=== PATIENT | female | born 1990 | race Caucasian/White ===

== ENCOUNTER 2017-02-11 21:03 | Observation (INO) | payer OTHER ==
[2017-02-11 22:04] LABS: Bilirubin NEGATIVE (NEGATIVE); Blood NEGATIVE Ery/ul (0-5); COMPLETE URINE MICROSCOPIC? YES; Collection Type CLEAN CATCH; Glucose NEGATIVE (NEGATIVE); Leukocyte Esterase TRACE (NEGATIVE)
[2017-02-11 22:05] LABS: Bacteria MANY /HPF (NEGATIVE); Epithelial Cells MODERATE /HPF (FEW); Mucus SLIGHT /HPF (NEGATIVE)
[2017-02-12 03:28] VITALS: BP 112/66; PULSE 86
== END 2017-02-12 02:40 | disposition home or self-care (01) ==
LOC: OB 21:03 → UNDOADMOB 21:03 → UNDODISOB 02-12 02:40
PROVIDERS: ADMIT Family Medicine; ATTEND Family Medicine
DX: Z34.83 Encounter for supervision of other normal pregnancy, third trimester (principal)
CPT/HCPCS: 80307; 81000; G0378

== ENCOUNTER 2017-02-13 05:00 | Observation (INO) | payer OTHER ==
[2017-02-13 08:19] VITALS: BP 116/57; PULSE 92
== END 2017-02-13 08:20 | disposition home or self-care (01) ==
LOC: OB 05:00
PROVIDERS: ADMIT Family Medicine; ATTEND Family Medicine
DX: Z34.83 Encounter for supervision of other normal pregnancy, third trimester (principal)
CPT/HCPCS: 80307; G0378

== ENCOUNTER 2017-02-15 06:09 | Inpatient (IN) | payer OTHER ==
[2017-02-15] MEDS ORDERED: OMNIPEN 2 GM / NACL 100ML 100 ML ONE (07:29)
[2017-02-15] MEDS ORDERED: Lactated Ringers 1,000 ML IV ONE ×2 (07:29→07:58)
[2017-02-15] MEDS ORDERED: PITOCIN 30 UNITS/ LR 500 ML 500 ML IV ONE (07:30)
[2017-02-15] MEDS ORDERED: OMNIPEN 2 GM / NACL 100ML 100 ML IV ONE (07:31)
[2017-02-15] MEDS ORDERED: XYLOCAINE 1% HCL 20 ML MDV IJ PRN (07:31)
[2017-02-15 07:54] LABS: BASOPHIL % 0.2 % (0.0-0.4); Eosinophil % 0.6 % (0.00-5.0); Granulocytes % 79.1 % (36.0-66.0); Lymphocytes % 12.9 % (24.0-44.0); Mean Cell Volume 75.3 fl (78-100); Mean Platelet Volume 9.5 fl (6-9.5); Monocytes % 7.2 % (0.0-12.0); Platelet Count 260 K/mm3 (150-450); Red Blood Count 3.73 M/mm3 (4.1-5.4); Red Cell Distribution Width 17.4 % (11.5-14.0); White Blood Count 11.7 K/mm3 (4.0-10.5)
[2017-02-15 07:55] LABS: Mean Corpuscular Hemoglobin 21.9 pg (26-32)
[2017-02-15] MEDS ORDERED: Ephedrine Sulfate 50 MG/ML IV PRN (07:58)
[2017-02-15] MEDS ORDERED: OB EPIDURAL NAROPIN/SUFENTANIL IN NACL EPIDURAL PRN (07:58)
[2017-02-15] MEDS ORDERED: Lactated Ringers 1,000 ML IV SCH (08:00)
[2017-02-15] MEDS ORDERED: PITOCIN 30 UNITS/ LR 500 ML 500 ML IV SCH (08:00)
[2017-02-15] MEDS ORDERED: Dermoplast Spray TP PRN (09:15)
[2017-02-15] MEDS ORDERED: CORTISONE 1% CREAM TP PRN (09:15)
[2017-02-15] MEDS ORDERED: TYLENOL EXTRA STRENGTH 500 MG PO PRN (09:15)
[2017-02-15] MEDS ORDERED: Dulcolax 10 MG SUPP PR PRN (09:15)
[2017-02-15] MEDS ORDERED: LANSINOH 40 GM TOP PRN (09:15)
[2017-02-15] MEDS ORDERED: TUCKS TP PRN (09:15)
[2017-02-15] MEDS ORDERED: Mylicon 80MG PO PRN (09:15)
[2017-02-15] MEDS ORDERED: Anucort-HC SUPPOSITORY PR PRN (09:15)
[2017-02-15] MEDS ORDERED: Ambien 10 MG PO PRN (09:15)
[2017-02-15] MEDS: MOTRIN 400 MG PO PRN (09:55)
[2017-02-15] MEDS ORDERED: OMNIPEN 1GM / NaCl 100ML 100 ML IV SCH (12:00)
[2017-02-15 13:41] LABS: Collection Type VOID
[2017-02-15 13:42] LABS: Bacteria MANY /HPF (NEGATIVE); Bilirubin NEGATIVE (NEGATIVE); Blood MODERATE Ery/ul (0-5); COMPLETE URINE MICROSCOPIC? YES; Epithelial Cells FEW /HPF (FEW); Glucose NEGATIVE (NEGATIVE); Leukocyte Esterase TRACE (NEGATIVE)
[2017-02-15] MEDS ORDERED: Rhogam Plus 300 MCG IM ONE (14:00)
[2017-02-15 21:07] LABS: Mean Cell Volume 76.5 fl (78-100); Mean Platelet Volume 9.2 fl (6-9.5); Platelet Count 280 K/mm3 (150-450); White Blood Count 13.3 K/mm3 (4.0-10.5)
[2017-02-15] MEDS: Colace 100 MG PO SCH (23:38)
[2017-02-15 23:40] LABS: Hypochromia 1+; Platelet Estimate NORMAL (NORMAL); Total Cells Counted 100
[2017-02-16 06:35] LABS: Mean Cell Volume 76.7 fl (78-100); Mean Corpuscular Hemoglobin 21.9 pg (26-32); Mean Platelet Volume 9.7 fl (6-9.5); Platelet Count 281 K/mm3 (150-450); Red Blood Count 3.74 M/mm3 (4.1-5.4); Red Cell Distribution Width 17.4 % (11.5-14.0); White Blood Count 12.6 K/mm3 (4.0-10.5)
[2017-02-16 07:48] LABS: ANISOCYTOSIS 1+; Hypochromia 1+; Platelet Estimate NORMAL (NORMAL); Total Cells Counted 100
[2017-02-16] MEDS: FERREX 150 PO SCH (13:02)
[2017-02-16] MEDS: Colace 100 MG PO SCH (13:03)
[2017-02-16] MEDS: MOTRIN 400 MG PO PRN ×2 (15:36→22:52)
[2017-02-16 19:46] VITALS: O2SAT 98
[2017-02-17] MEDS: Colace 100 MG PO SCH ×3 (00:41→21:38)
[2017-02-17] MEDS: NORCO 5/325 MG PO PRN ×3 (00:41→23:08)
[2017-02-17] MEDS: MOTRIN 400 MG PO PRN (08:38)
[2017-02-17] MEDS: FERREX 150 PO SCH (08:39)
[2017-02-17] MEDS: KEFLEX 500 MG PO SCH ×4 (10:12→21:38)
[2017-02-18] MEDS: MOTRIN 400 MG PO PRN (06:20)
--- NOTE | 2017-02-18 08:32 | PCM.DS ---
Discharge Summary Date of Admission: 02/15/17 07:25 Admitting Physician: RUTHIE SHARIF Consults: Consults on Case 02/15/17 09:16 Notify Physician ROUTINE Primary Care Provider: RUTHIE SHARIF Allergies Allergies No Known Drug Allergies Allergy (Verified 02/13/17 05:16) Hospital Summary - Hospital Course Hospital Course: patient came in with spont labor and SROM at 37+wks, vaginal delivery by Dr Sullivan. no complications, has dental infection and started on keflex post- delivery. mild lochia, ama po, afebrile - Vitals & Intake/Output Vital Signs: Vital Signs Temperature 98.9 F 02/17/17 19:42 Pulse Rate 93 H 02/17/17 19:42 Respiratory Rate 18 02/18/17 02:00 Blood Pressure 121/63 02/17/17 19:42 O2 Sat by Pulse Oximetry 98 02/17/17 06:00 Intake & Output: Intake & Output 02/15/17 02/16/17 02/17/17 02/18/17 11:59 11:59 11:59 11:59 Intake Total 1300 Balance 1300 Weight 69.4 kg - Lab Result Diagrams: 02/16/17 06:15 Discharge Exam General Appearance: no apparent distress, alert Respiratory Exam: normal breath sounds, lungs clear, No respiratory distress Cardiovascular Exam: regular rate/rhythm, normal heart sounds Gastrointestinal/Abdomen Exam: soft, No tenderness, No mass Extremity Exam: normal inspection, normal range of motion Final Diagnosis/Problem List - Final Discharge Diagnosis/Problem (1) Vaginal delivery Current Visit: No Status: Acute (2) Dental infection Current Visit: Yes Status: Acute - Discharge Disposition: Home, Self-Care Condition: Stable Prescriptions: New Ibuprofen 800 mg PO TID PRN #30 tablet Cephalexin Mh 500 mg [Keflex 500 mg] 500 mg PO QID #28 capsule Breast Pump [Pump in Style Advanced] 1 each UD #1 each
[2017-02-18 08:35] VITALS: BP 108/79; PULSE 85
== END 2017-02-18 10:05 | disposition home or self-care (01) | DRG 775 ==
LOC: OB 06:09 → OBSVTOIN 07:25
PROVIDERS: ADMIT Family Medicine; ATTEND Family Medicine
PROC: 10E0XZZ Delivery of Products of Conception, External Approach (ICD-10-PCS; principal; 2017-02-15)
DX: O42.92 Full-term premature rupture of membranes, unspecified as to length of time between rupture and onset of labor (principal); Z3A.37 37 weeks gestation of pregnancy; I10 Essential (primary) hypertension; Z37.0 Single live birth; D64.9 Anemia, unspecified; K04.7 Periapical abscess without sinus
CPT/HCPCS: 36415; 80307; 81000; 85025; 85461; 86850; 86870; 86900; 86901; 96372; G0378; J0290; J2590; J2790; A9270-GY

== ENCOUNTER 2019-04-02 14:21 | Observation (INO) | payer SELFPAY ==
[2019-04-02 14:39] VITALS: BP 104/55; PULSE 98
[2019-04-02 15:34] LABS: Appearance SLIGHTLY CLOUDY (CLEAR); Bacteria MODERATE /HPF (NEGATIVE); Bilirubin NEGATIVE (NEGATIVE); Blood NEGATIVE Ery/ul (0-5); Epithelial Cells RARE /HPF (FEW); Glucose NEGATIVE (NEGATIVE); Ketones NEGATIVE (NEGATIVE); Leukocyte Esterase MODERATE (NEGATIVE); Mucus SLIGHT /HPF (NEGATIVE); Nitrite POSITIVE (NEGATIVE); Protein,Urine Dip NEGATIVE (Negative); Specific Gravity 1.008 (1.005-1.025); Urobilinogen NEGATIVE mg/dL (0-1); WBC 26-50 /HPF (0-5)
[2019-04-02 15:40] LABS: Amphetamine,Urine NEGATIVE (NEGATIVE); Barbiturate,Urine NEGATIVE (NEGATIVE); Benzodiazepine,Urine NEGATIVE (NEGATIVE); Cocaine,Urine NEGATIVE (NEGATIVE); Methadone,Urine NEGATIVE (NEGATIVE); Opiate,Urine NEGATIVE (NEGATIVE); PCP,Urine NEGATIVE (NEGATIVE); THC,Urine NEGATIVE (NEGATIVE)
[2019-04-02] MEDS ORDERED: Rocephin 1000 MG INJ IM ONE (16:00)
[2019-04-02] MEDS ORDERED: XYLOCAINE 1% HCL 20 ML MDV IJ ONE (16:15)
[2019-04-02 16:53] LABS: ABO TYPING B; Antibody Screen NEGATIVE (NEGATIVE); RH TYPING NEGATIVE
== END 2019-04-02 16:45 | disposition home or self-care (01) ==
LOC: OB 14:21
PROVIDERS: ADMIT Family Medicine; ATTEND Family Medicine
DX: Z34.83 Encounter for supervision of other normal pregnancy, third trimester (principal)
CPT/HCPCS: 36415; 80307; 81001; 86850; 86900; 86901; 96372; G0378; J0696

== ENCOUNTER 2019-04-03 12:18 | Observation (INO) | payer MEDICAID ==
[2019-04-03] MEDS ORDERED: Lactated Ringers 1,000 ML IV ONE (12:26)
[2019-04-03] MEDS ORDERED: Lactated Ringers 1,000 ML IV SCH (12:30)
[2019-04-03 13:20] LABS: ALBUMIN 3.7 g/dL (3.5-5.0); ALKALINE PHOSPHATASE 98 U/L (38-126); ANION GAP 11.7 MEQ/L (5-15); BLOOD UREA NITROGEN 8 mg/dL (7-17); CHLORIDE 108 mmol/L (98-107); Calcium 8.6 mg/dL (8.4-10.2); Carbon Dioxide 21 mmol/L (22-30); Creatinine 1 0.47 mg/dL (0.52-1.04); Glucose 81 mg/dL (74-106); Hemoglobin 7.4 gm/dl (12.0-16.0); Mean Cell Volume 76.5 fl (78-100); Mean Corpuscular Hemoglobin 22.6 pg (26-32); Mean Corpuscular Hgb Concent. 29.6 g/dl (32-36); Mean Platelet Volume 8.9 fl (6-9.5); Platelet Count 253 K/mm3 (150-450); Potassium 3.8 mmol/L (3.5-5.1); Red Blood Count 3.27 M/mm3 (4.1-5.4); Red Cell Distribution Width 14.9 % (11.5-14.0); SGOT/AST 22 U/L (14-36); SGPT/ALT 9 U/L (0-35); SODIUM 137 mmol/L (137-145); Total Protein 7.2 g/dL (6.3-8.2); White Blood Count 11.8 K/mm3 (4.0-10.5)
--- NOTE | 2019-04-03 13:36 | XRAY ---
Indication: Evaluate cervical length. Two-dimensional limited transvaginal pelvic sonogram performed to evaluate cervical length. Cervix is closed measuring 3.2-3.8 cm.
--- NOTE | 2019-04-03 13:36 | XRAY ---
Indication: Pain. Rule out abruption. Comparison: January 27, 2019. Limited OB ultrasound again demonstrates a single viable intrauterine in cephalic presentation with heart rate 123 BPM. Again anterior placenta without abruption/previa.
[2019-04-03 13:58] LABS: BAND 12 % (0.0-2.0); Eosinophil 2 % (0.00-3.0); Lymphocytes 12 % (24-44); Monocyte 5 % (0.0-12.0); Neutrophils 69 % (36.0-66.0); Total Cells Counted 100
[2019-04-03 14:01] LABS: Hypochromia 1+; Platelet Estimate NORMAL (NORMAL); Poikilocytosis RARE; Polychromasia 1+
[2019-04-03 14:02] LABS: Granulocyte Absolute (ANC) 9.57 (1.4-6.9)
[2019-04-03] MEDS ORDERED: FEOSOL 325 MG PO SCH (14:45)
[2019-04-03] MEDS ORDERED: ROCEPHIN 1 Gm-D5w 50 ml Bag** 1 G/50 ML IVPB IV ONE (14:45)
[2019-04-03 16:53] LABS: Appearance SLIGHTLY CLOUDY (CLEAR); Bilirubin NEGATIVE (NEGATIVE); Blood SMALL Ery/ul (0-5); Epithelial Cells FEW /HPF (FEW); Glucose NEGATIVE (NEGATIVE); Ketones TRACE (NEGATIVE); Leukocyte Esterase SMALL (NEGATIVE); Nitrite NEGATIVE (NEGATIVE); Protein,Urine Dip NEGATIVE (Negative); RBC 0-2 /HPF (0-2); Specific Gravity 1.005 (1.005-1.025); Urobilinogen NEGATIVE mg/dL (0-1); WBC 0-2 /HPF (0-5)
[2019-04-03 16:59] VITALS: BP 100/53; PULSE 76
[2019-04-04] MEDS ORDERED: FEOSOL 325 MG PO SCH (10:00)
[2019-04-04] MEDS ORDERED: ROCEPHIN 1 Gm-D5w 50 ml Bag** 1 G/50 ML IVPB IV ONE (14:45)
== END 2019-04-03 18:05 | disposition home or self-care (01) ==
LOC: OB 12:18
PROVIDERS: ADMIT Family Medicine; ATTEND Family Medicine
DX: Z34.83 Encounter for supervision of other normal pregnancy, third trimester (principal)
CPT/HCPCS: 36415; 76815; 76817; 80053; 81001; 84439; 84481; 85025; G0378; J0696; A9270-GY

== ENCOUNTER 2019-05-26 12:27 | Observation (INO) | payer OTHER ==
[2019-05-26 13:06] LABS: Appearance SLIGHTLY CLOUDY (CLEAR); Bacteria RARE /HPF (NEGATIVE); Bilirubin NEGATIVE (NEGATIVE); Blood NEGATIVE Ery/ul (0-5); Epithelial Cells RARE /HPF (FEW); Glucose NEGATIVE (NEGATIVE); Ketones NEGATIVE (NEGATIVE); Leukocyte Esterase TRACE (NEGATIVE); Mucus SLIGHT /HPF (NEGATIVE); Nitrite NEGATIVE (NEGATIVE); Protein,Urine Dip NEGATIVE (Negative); Specific Gravity 1.019 (1.005-1.025); Urobilinogen 4 mg/dL (0-1)
[2019-05-26 13:16] VITALS: BP 102/57; PULSE 100
== END 2019-05-26 15:00 | disposition home or self-care (01) ==
LOC: OB 12:27
PROVIDERS: ADMIT Family Medicine; ATTEND Family Medicine
DX: Z34.83 Encounter for supervision of other normal pregnancy, third trimester (principal)
CPT/HCPCS: 81001

== ENCOUNTER 2019-06-02 23:20 | Observation (INO) | payer OTHER ==
[2019-06-03 00:07] VITALS: BP 119/58; PULSE 100; O2SAT 100
[2019-06-03 00:47] LABS: Amphetamine,Urine NEGATIVE (NEGATIVE); Barbiturate,Urine NEGATIVE (NEGATIVE); Benzodiazepine,Urine NEGATIVE (NEGATIVE); Cocaine,Urine NEGATIVE (NEGATIVE); Methadone,Urine NEGATIVE (NEGATIVE); Opiate,Urine NEGATIVE (NEGATIVE); PCP,Urine NEGATIVE (NEGATIVE); THC,Urine NEGATIVE (NEGATIVE)
== END 2019-06-03 01:10 | disposition home or self-care (01) ==
LOC: OB 23:20
PROVIDERS: ADMIT Family Medicine; ATTEND Family Medicine
DX: Z34.83 Encounter for supervision of other normal pregnancy, third trimester (principal)
CPT/HCPCS: 80307; G0378

== ENCOUNTER 2019-06-12 19:53 | Inpatient (IN) | payer OTHER ==
[2019-06-12 20:44] VITALS: O2SAT 97
[2019-06-12 20:45] LABS: Amphetamine,Urine NEGATIVE (NEGATIVE); Barbiturate,Urine NEGATIVE (NEGATIVE); Benzodiazepine,Urine NEGATIVE (NEGATIVE); Cocaine,Urine NEGATIVE (NEGATIVE); Methadone,Urine NEGATIVE (NEGATIVE); Opiate,Urine NEGATIVE (NEGATIVE); PCP,Urine NEGATIVE (NEGATIVE); THC,Urine NEGATIVE (NEGATIVE)
[2019-06-12] MEDS ORDERED: Lactated Ringers 1,000 ML IV ONE (21:26)
[2019-06-12] MEDS ORDERED: XYLOCAINE 1% HCL 20 ML MDV IJ PRN (21:30)
[2019-06-12] MEDS ORDERED: PITOCIN 30 UNITS/ LR 500 ML 500 ML IV SCH (21:30)
[2019-06-12 21:44] LABS: Hematocrit 32.7 % (35-47); Hemoglobin 10.5 gm/dl (12.0-16.0); Mean Cell Volume 86.5 fl (78-100); Mean Corpuscular Hgb Concent. 32.1 g/dl (32-36); Mean Platelet Volume 9.1 fl (6-9.5); Platelet Count 229 K/mm3 (150-450); Red Blood Count 3.78 M/mm3 (4.1-5.4); White Blood Count 15.8 K/mm3 (4.0-10.5)
[2019-06-12 21:48] LABS: Mean Corpuscular Hemoglobin 27.7 pg (26-32)
[2019-06-12] MEDS ORDERED: Lactated Ringers 1,000 ML IV SCH (22:00)
[2019-06-12 23:54] LABS: ABO TYPING B; RH TYPING NEGATIVE
[2019-06-12 23:55] LABS: Antibody Screen POSITIVE (NEGATIVE)
[2019-06-13] MEDS ORDERED: LANSINOH 40 GM TOP PRN (00:45)
[2019-06-13] MEDS ORDERED: Mylicon 80MG PO PRN (00:45)
[2019-06-13] MEDS ORDERED: Rhogam Plus 300 MCG IM ONE ×2 (00:45→10:00)
[2019-06-13] MEDS ORDERED: Dulcolax 10 MG SUPP PR PRN (00:45)
[2019-06-13] MEDS ORDERED: CORTISONE 1% CREAM TP PRN (00:45)
[2019-06-13] MEDS ORDERED: Anucort-HC SUPPOSITORY PR PRN (00:45)
[2019-06-13] MEDS ORDERED: Ambien 10 MG PO PRN (00:45)
[2019-06-13] MEDS ORDERED: TYLENOL EXTRA STRENGTH 500 MG PO PRN (00:45)
[2019-06-13] MEDS ORDERED: Dermoplast Spray TP PRN (00:45)
[2019-06-13] MEDS ORDERED: TUCKS TP PRN (00:45)
[2019-06-13] MEDS ORDERED: NORCO 5/325 MG PO PRN (00:45)
[2019-06-13 01:17] LABS: ABO TYPING B; RH TYPING NEGATIVE
[2019-06-13 01:18] LABS: ANTIBODY SCREEN POSITIVE (NEGATIVE)
[2019-06-13] MEDS: MOTRIN 400 MG PO PRN ×3 (04:28→21:56)
[2019-06-13 05:19] LABS: Hematocrit 31.6 % (35-47); Hemoglobin 10.1 gm/dl (12.0-16.0); Mean Cell Volume 87.5 fl (78-100); Mean Platelet Volume 9.3 fl (6-9.5); Platelet Count 252 K/mm3 (150-450); Red Blood Count 3.61 M/mm3 (4.1-5.4); White Blood Count 16.8 K/mm3 (4.0-10.5)
[2019-06-13 05:21] LABS: Mean Corpuscular Hemoglobin 27.9 pg (26-32)
[2019-06-13 05:31] LABS: ANISOCYTOSIS 1+; BAND 4 % (0.0-2.0); Lymphocytes 11 % (24-44); Monocyte 3 % (0.0-12.0); Neutrophils 82 % (36.0-66.0); Platelet Estimate NORMAL (NORMAL); Poikilocytosis 2+; Total Cells Counted 100; Toxic Granulation RARE
[2019-06-13 05:52] LABS: ANISOCYTOSIS RARE; Basophil 1 % (0.0-1.0); Eosinophil 1 % (0.00-3.0); Lymphocytes 7 % (24-44); Monocyte 8 % (0.0-12.0); Neutrophils 83 % (36.0-66.0); Platelet Estimate NORMAL (NORMAL); Poikilocytosis RARE; Polychromasia RARE; Total Cells Counted 100; Toxic Granulation 1+
[2019-06-13] MEDS: FERREX 150 PO SCH (10:39)
[2019-06-13] MEDS: Colace 100 MG PO SCH ×2 (10:39→21:57)
[2019-06-14 03:37] VITALS: PULSE 69
[2019-06-14] MEDS: MOTRIN 400 MG PO PRN (04:06)
[2019-06-14 06:01] VITALS: BP 100/53
--- NOTE | 2019-06-14 08:26 | PCM.DS ---
Discharge Summary Date of Admission: 06/12/19 19:53 Admitting Physician: RUTHIE SHARIF Primary Care Provider: RUTHIE SHARIF Allergies Allergies No Known Drug Allergies Allergy (Verified 06/12/19 20:50) Hospital Summary - Hospital Course Hospital Course: arrived in spontaneous labor at 38 5/7wks, had uncomplicated , . , mild lochia, pain has been well controlled. - Vitals & Intake/Output Vital Signs: Vital Signs Temperature 98.1 F 06/14/19 03:00 Pulse Rate 69 06/14/19 03:00 Respiratory Rate 18 06/13/19 15:45 Blood Pressure 100/53 06/14/19 04:00 O2 Sat by Pulse Oximetry 97 06/12/19 20:28 Intake & Output: Intake & Output 06/11/19 06/12/19 06/13/19 06/14/19 11:59 11:59 11:59 11:59 Weight 68.946 kg - Lab Result Diagrams: 06/13/19 05:17 - Procedures and Test Procedures and Tests throughout Hospitalization: Therapy Orders & Screens 06/12/19 20:44 Smoking Cessation Education ONCE Comment: Diagnosis: possible labor Smoking Status: Current every day smoker How long have you smoked: 3 yrd Have you smoked in the past 12 months: Yes Approximately how many cigarettes per day: about 10/day Do you dip or chew tobacco: No Discharge Exam General Appearance: no apparent distress, alert Respiratory Exam: normal breath sounds, lungs clear, No respiratory distress Cardiovascular Exam: regular rate/rhythm, normal heart sounds Gastrointestinal/Abdomen Exam: soft, No tenderness, No mass Extremity Exam: normal inspection, normal range of motion Skin Exam: normal color, warm, dry Final Diagnosis/Problem List - Final Discharge Diagnosis/Problem (1) Normal vaginal delivery Current Visit: Yes Status: Acute Code(s): O80 - ENCOUNTER FOR FULL-TERM UNCOMPLICATED DELIVERY (2) () Current Visit: Yes Status: Acute Code(s): Z78.9 - OTHER SPECIFIED HEALTH STATUS - Discharge Disposition: Home, Self-Care Condition: Stable Prescriptions: New Breast Pump 1 each MC DAILY #1 each Continue Pnv No.103/Folic/Om3s/Fish Oil [ Gummies] 1 each PO DAILY Follow up with: RUTHIE SHARIF MD [Primary Care Provider] - 1 Week
[2019-06-14] MEDS: Colace 100 MG PO SCH (10:16)
[2019-06-14] MEDS: FERREX 150 PO SCH (10:16)
== END 2019-06-14 14:30 | disposition home or self-care (01) | DRG 998 ==
LOC: OBSVTOIN 19:53 → OB 19:53
PROVIDERS: ADMIT Family Medicine; ATTEND Family Medicine
DX: O80 Encounter for full-term uncomplicated delivery (principal); Z3A.38 38 weeks gestation of pregnancy; Z37.0 Single live birth; Z78.9 Other specified health status
CPT/HCPCS: 36415; 80307; 81003; 85025; 85461; 86850; 86900; 86901; 87340; 96372; J2590; J2790; L0625; A9270-GY

== ENCOUNTER 2019-07-28 06:31 | Day surgery (SDC) | payer OTHER ==
[~2019-07-28 06:31] MED LIST: Lactated Ringers 1,000 ML IV ONE; Sensorcaine 0.25% 10 ML ONE
[2019-07-28] MEDS ORDERED: Lactated Ringers 1,000 ML IV ONE (07:20)
[2019-07-28] MEDS ORDERED: Lactated Ringers 1,000 ML IV SCH (07:30)
[2019-07-28] MEDS ORDERED: Zemuron 100 MG/10 ML ONE (07:58)
[2019-07-28] MEDS ORDERED: SUBLIMAZE 100 MCG/2 ML ONE ×2 (07:58→09:58)
[2019-07-28] MEDS ORDERED: DIPRIVAN 200 MG/20 ML IV ONE (07:58)
[2019-07-28] MEDS ORDERED: Quelicin Fliptop 200 MG/10 ML ONE (07:58)
[2019-07-28] MEDS ORDERED: TORAdol 30 mg Injection ONE (09:15)
[2019-07-28] MEDS ORDERED: Zofran 4 MG/2 ML VIAL ONE (09:15)
[2019-07-28] MEDS ORDERED: Decadron 4 MG INJ ONE (09:15)
[2019-07-28] MEDS ORDERED: BRIDION 200MG/2ML IV ONE (09:45)
[2019-07-28] MEDS ORDERED: DILAUDID 2 MG INJECTION ONE (09:58)
[2019-07-28 10:39] VITALS: O2SAT 100
[2019-07-28 11:09] VITALS: BP 144/89; PULSE 49
--- NOTE | 2019-07-29 08:30 | OP ---
SURGERY DATE/TIME: 07/28/2019 09 PREOPERATIVE DIAGNOSIS: Multiparity desiring tubal sterilization. POSTOPERATIVE DIAGNOSIS: Multiparity desiring tubal sterilization. PROCEDURE: Laparoscopic tubal sterilization via Falope ring application. SURGEON: Jeevan Luna D.O. COMPUTER SUPPORT TECHNICIAN: Niels King surgical aides teacher. ANESTHESIA: General. ESTIMATED BLOOD LOSS: Minimal. COMPLICATIONS: None. INDICATIONS: The risks, benefits, indications and alternatives of the procedure were reviewed with the patient prior to procedure. The patient understood the risk of infection, bleeding, bowel injury, bladder injury, ureteral injury, uterine perforation, possible and ectopic or all other forms of control were discussed with the patient prior to the procedure and understands the possible risk of of 1:4 out of 1,000 who may still get however desires to have this procedure for definitive treatment for control measure. DESCRIPTION OF PROCEDURE AND FINDINGS: At this point the patient is taken to the operating room, given general sedation, placed in a dorsal lithotomy position. Prepped and draped in usual sterile fashion. A weighted speculum is then placed in the patient's vagina and the anterior lip of the cervix was grasped with a single tooth tenaculum. From this point a uterine manipulator was then placed through the endocervical canal as a means to manipulate the uterus. All instruments were then removed from the patient's vagina region and attention is then turned to the patient's abdomen where a 5 mm skin incision was made in umbilical fold and a 5 mm trocar and sleeve were advanced under direct visualization where pneumoperitoneum was obtained with 4 liters of CO2 gas. From this point visualization in the abdominal cavity appeared to be within normal limits. An additional incision was made approximately 2 cm above the symphysis pubis where an 8 mm incision was made and 8 mm trocar and sleeve were advanced under direct visualization. From this point the uterus is elevated with uterine manipulator and the Falope ring applicator was loaded and the right isthmic-ampullary portion approximately 2 to 3 cm from the cornual region was grasped with a Falope ring and was applied without complication. The ring was noted to be in place and perfect position where a good amount of tube was located within the ring. The Falope ring applicator was reloaded and the same procedure was performed on the right fallopian tube approximately 2 to 3 cm from the cornual region where the tube was grasped with the Falope ring and the Falope ring was placed without complication in perfect position and had been released from the Falope ring applicator with a good amount of tube approximately 2 to 3 cm of tube that was within the ring and was done so without complication. There was no bleeding that was noted from either side at this point. From this point the pelvic region appeared to be within normal limits. From this point all instruments were then removed from the patient's abdominal region and the incisions were closed with 4-0 Monocryl suture. The patient was then taken out of anesthesia and was then taken to the recovery room in stable condition. All instruments and laps were accounted for x2.
== END 2019-07-28 11:05 | disposition home or self-care (01) ==
LOC: SDC 06:31
PROVIDERS: ATTEND Obstetrics & Gynecology
DX: Z30.2 Encounter for sterilization (principal)
CPT/HCPCS: 84703; J0330; J1100; J1170; J1885; J2405; J2704; J3010

== ENCOUNTER 2019-07-29 17:30 | Emergency (ER) | payer OTHER ==
[2019-07-29] MEDS ORDERED: Sodium Chloride 0.9% 1000 ML 1,000 ML IV STA (18:07)
[2019-07-29] MEDS ORDERED: Zofran 4 MG/2 ML VIAL IV ONE (18:07)
[2019-07-29] MEDS ORDERED: MORPHINE SULFATE 4 MG INJ IV ONE (18:07)
[2019-07-29 18:19] LABS: Absolute Neutrophil Ct (ANC) 4.27 (1.4-6.9); BASOPHIL % 0.4 % (0.0-0.4); Basophil (Absolute #) 0.02 (0-0.4); Eosinophil % 0.2 % (0.00-5.0); Eosinophil (Absolute #) 0.01 (0-0.5); Hematocrit 44.1 % (35-47); Hemoglobin 13.9 gm/dl (12.0-16.0); Lymphocyte (Absolute #) 0.43 (1.0-4.6); Lymphocytes % 8.6 % (24.0-44.0); Mean Cell Volume 92.6 fl (78-100); Mean Corpuscular Hemoglobin 29.2 pg (26-32); Mean Corpuscular Hgb Concent. 31.5 g/dl (32-36); Mean Platelet Volume 9.5 fl (7.5-11.0); Monocyte (Absolute #) 0.25 (0.0-1.3); Neutrophil % 85.8 % (36.0-66.0); Platelet Count 142 K/mm3 (150-450); Red Blood Count 4.76 M/mm3 (4.1-5.4); Red Cell Distribution Width 14.7 % (11.5-14.0)
[2019-07-29 18:27] LABS: Appearance SLIGHTLY CLOUDY (CLEAR); Bilirubin NEGATIVE (NEGATIVE); Blood LARGE Ery/ul (0-5); Epithelial Cells RARE /HPF (FEW); Glucose NEGATIVE (NEGATIVE); Ketones NEGATIVE (NEGATIVE); Leukocyte Esterase NEGATIVE (NEGATIVE); Mucus MODERATE /HPF (NEGATIVE); Nitrite NEGATIVE (NEGATIVE); Protein,Urine Dip NEGATIVE (Negative); Specific Gravity 1.026 (1.005-1.025); Urobilinogen 2 mg/dL (0-1)
[2019-07-29] MEDS ORDERED: Sodium Chloride 0.9% 1000 ML 1,000 ML ONE (18:28)
[2019-07-29] MEDS ORDERED: Zofran 4 MG/2 ML VIAL ONE (18:28)
[2019-07-29] MEDS ORDERED: MORPHINE SULFATE 4 MG INJ ONE (18:28)
[2019-07-29 18:30] LABS: ALBUMIN 4.2 g/dL (3.5-5.0); ANION GAP 9.3 MEQ/L (5-15); BILIRUBIN,TOTAL 0.5 mg/dL (0.2-1.3); Calcium 9.1 mg/dL (8.4-10.2); Creatinine 1 1.21 mg/dL (0.52-1.04); Potassium 3.4 mmol/L (3.5-5.1); Total Protein 7.7 g/dL (6.3-8.2)
--- NOTE | 2019-07-29 18:50 | ERPHSYRPT ---
- History of Present Illness Historian: patient, family Exam Limitations: no limitations Patient Subjective Stated Complaint: Fever Triage Nursing Assessment: Patient ambulated into ED and transferred self to bed. Patient A+O X3. Patient's skin flushed, hot and dry. Patient complains of lower abdominal pain constant sharp, stabbing pain 9/10 that has gotten worse today. Patient had tubal done yesterday per. Dr. Bermudez. Patient's abdomen round and tender with BS X 4. Patient states she is currently having vaginal bleeding. Patient delivered a baby one month ago. Patient complains of fever as high as 103.0. Patient called Dr. Bermudez's office and was instructed to come to ED for evaluation. Timing/Duration: yesterday Quality: sharpness Abdominal Pain Onset Location: periumbilical, suprapubic Pain Radiation: no radiation Severity of Pain-Max: moderate Severity of Pain-Current: severe Modifying Factors: Improves With: coughing, movement Associated Symptoms: fever/chills Previous symptoms: no prior history Hx Tetanus, Diphtheria Vaccination/Date Given: Yes Hx Influenza Vaccination/Date Given: No Hx Pneumococcal Vaccination/Date Given: No Immunizations Up to Date: Yes <MARLINE PABON - Last Filed: 07/29/19 18:45> <ROSARIO HOOD - Last Filed: 07/29/19 21:12> - History of Present Illness Time Seen by Provider: 07/29/19 18:00 Physician History: 28 YO with laparoscopic BTL yesterday presented with increasing pain lower abd since yesterday , moderate to severe intensity , shap nature associated with nausea and fever with TMAX 103F. also she is having mild dark colored vaginal bleeding. she has 1 month ago and not have cycle yet. (MARLINE PABON) Allergies/Adverse Reactions: No Known Drug Allergies Allergy (Verified 07/29/19 17:37) - Review of Systems Constitutional: Fever, Chills, Fatigue Eyes: No Symptoms Ears, Nose, & Throat: No Symptoms Respiratory: No Symptoms Cardiac: No Symptoms Abdominal/Gastrointestinal: Abdominal Pain, Nausea Genitourinary Symptoms: Vaginal Bleeding Musculoskeletal: No Symptoms Skin: No Symptoms Neurological: No Symptoms Psychological: No Symptoms Endocrine: No Symptoms Hematologic/Lymphatic: No Symptoms Immunological/Allergic: No Symptoms <MARLINE PABON - Last Filed: 07/29/19 18:45> - Past Medical History Pertinent Past Medical History: Yes Neurological History: No Pertinent History ENT History: No Pertinent History Cardiac History: No Pertinent History Respiratory History: No Pertinent History Endocrine Medical History: Hypothyroidism Musculoskeletal History: Arthritis GI Medical History: No Pertinent History History: No Pertinent History Psycho-Social History: No Pertinent History Female Reproductive Disorders: No Pertinent History Other Medical History: CLUB FOOT, HYPOTENSION, HYPOGLYCEMIA - Past Surgical History Past Surgical History: Yes Neuro Surgical History: No Pertinent History Cardiac: No Pertinent History Respiratory: No Pertinent History Gastrointestinal: No Pertinent History Genitourinary: No Pertinent History Musculoskeletal: Orthopedic Surgery Female Surgical History: Dilation & Curettage 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, d&c - Social History Smoking Status: Current every day smoker How long have you smoked: years Exposure to second hand smoke: Yes Drug Use: none Patient Lives Alone: No Significant Family History: no pertinent family hx - Female History Hx Now: No <MARLINE PABON - Last Filed: 07/29/19 18:45> - Physical Exam General Appearance: no apparent distress Eye Exam: PERRL/EOMI, eyes nml inspection Ears, Nose, Throat Exam: normal ENT inspection, TMs normal, pharyngeal erythema Neck Exam: normal inspection, non-tender, supple, full range of motion Respiratory Exam: normal breath sounds, lungs clear Cardiovascular Exam: regular rate/rhythm, normal heart sounds Gastrointestinal/Abdomen Exam: soft, normal bowel sounds, tenderness (lower abdomen. 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 Skin Exam: normal color, warm SpO2 Interpretation: normal SpO2: 100 O2 Delivery: Room Air <MARLINE PABON - Last Filed: 07/29/19 18:45> - Nursing Vital Signs Nursing Vital Signs: Initial Vital Signs Temperature 101.5 F 07/29/19 17:38 Pulse Rate 95 H 07/29/19 17:38 Respiratory Rate 18 07/29/19 17:38 Blood Pressure 101/54 07/29/19 17:38 O2 Sat by Pulse Oximetry 100 07/29/19 17:38 Pain Scale Pain Intensity 9 - Course Nursing assessment & vital signs reviewed: Yes <NIKKI PABONR - Last Filed: 07/29/19 18:45> Ordered Tests: Active Orders 24 hr Category Date Time Status IV Insertion STAT Care 07/29/19 18:07 Active ABDOMEN AND PELVIS W/0 CONTRAS [CT] Stat Exams 07/29/19 20:11 Taken CBC W DIFF Stat Lab 07/29/19 18:18 Completed CMP Stat Lab 07/29/19 18:18 Completed HCG,QUALITATIVE URINE Stat Lab 07/29/19 20:05 Completed LIPASE Stat Lab 07/29/19 18:18 Completed Lactic Acid Stat Lab 07/29/19 19:00 Completed UA W/RFX UR CULTURE Stat Lab 07/29/19 18:17 Completed Medication Summary Discontinued Medications Generic Name Dose Route Start Last Admin Trade Name Rom PRN Reason Stop Dose Admin Sodium Chloride 1,000 mls @ 999 mls/hr 07/29/19 18:07 07/29/19 20:07 Sodium Chloride 0.9% 1000 Ml IV 07/29/19 19:07 Infused .Q1H1M STA Infusion Sodium Chloride Confirm 07/29/19 18:28 Sodium Chloride 0.9% 1000 Ml Administered 07/29/19 18:29 Dose 1,000 mls @ ud .ROUTE .STK-MED ONE Morphine Sulfate 4 mg 07/29/19 18:07 07/29/19 18:31 Morphine Sulfate 4 Mg Inj IV 07/29/19 18:08 4 mg STAT ONE Administration Morphine Sulfate Confirm 07/29/19 18:28 Morphine Sulfate 4 Mg Inj Administered 07/29/19 18:29 Dose 4 mg .ROUTE .STK-MED ONE Ondansetron HCl 4 mg 07/29/19 18:07 07/29/19 18:30 Zofran 4 Mg/2 Ml Vial IV 07/29/19 18:08 4 mg STAT ONE Administration Ondansetron HCl Confirm 07/29/19 18:28 Zofran 4 Mg/2 Ml Vial Administered 07/29/19 18:29 Dose 4 mg .ROUTE .STK-MED ONE Lab/Rad Data: Laboratory Result Diagrams 07/29/19 18:18 07/29/19 18:18 Laboratory Results 07/29/19 07/29/19 07/29/19 Range/Units 20:05 19:00 18:18 WBC (4.0-10.5) K/mm3 RBC (4.1-5.4) M/mm3 Hgb (12.0-16.0) gm/dl Hct (35-47) % MCV (78-100) fl MCH (26-32) pg MCHC (32-36) g/dl RDW (11.5-14.0) % Plt Count (150-450) K/mm3 MPV (7.5-11.0) fl Gran % (36.0-66.0) % Eos # (Auto) (0-0.5) Absolute Lymphs (auto) (1.0-4.6) Absolute Monos (auto) (0.0-1.3) Lymphocytes % (24.0-44.0) % Monocytes % (0.0-12.0) % Eosinophils % (0.00-5.0) % Basophils % (0.0-0.4) % Absolute Granulocytes (1.4-6.9) Basophils # (0-0.4) Sodium 138 (137-145) mmol/L Potassium 3.4 L (3.5-5.1) mmol/L Chloride 102 (98-107) mmol/L Carbon Dioxide 29 (22-30) mmol/L Anion Gap 9.3 (5-15) MEQ/L BUN 14 (7-17) mg/dL Creatinine 1.21 H (0.52-1.04) mg/dL Estimated GFR 56.3 ML/MIN Glucose 98 (74-106) mg/dL Lactic Acid 1.2 (0.4-2.0) Calcium 9.1 (8.4-10.2) mg/dL Total Bilirubin 0.50 (0.2-1.3) mg/dL AST 37 H (14-36) U/L ALT 19 (0-35) U/L Alkaline Phosphatase 70 (38-126) U/L Serum Total Protein 7.7 (6.3-8.2) g/dL Albumin 4.2 (3.5-5.0) g/dL Lipase 60 (23-300) U/L Urine Color (YELLOW) Urine Appearance (CLEAR) Urine pH (5-6) Ur Specific [place] (1.005-1.025) Urine Protein (Negative) Urine Ketones (NEGATIVE) Urine Blood (0-5) Fernando/ul Urine Nitrite (NEGATIVE) Urine Bilirubin (NEGATIVE) Urine Urobilinogen (0-1) mg/dL Ur Leukocyte Esterase (NEGATIVE) Urine WBC (Auto) (0-5) /HPF Urine RBC (Auto) (0-2) /HPF U Epithel Cells (Auto) (FEW) /HPF Urine Bacteria (Auto) (NEGATIVE) /HPF Urine Mucus (Auto) (NEGATIVE) /HPF Urine Culture Reflexed (NO) Urine Glucose (NEGATIVE) mg/dL Urine HCG, Qual NEGATIVE (Negative) Slides for Path Review 07/29/19 07/29/19 Range/Units 18:18 18:17 WBC 5.0 (4.0-10.5) K/mm3 RBC 4.76 (4.1-5.4) M/mm3 Hgb 13.9 (12.0-16.0) gm/dl Hct 44.1 (35-47) % MCV 92.6 (78-100) fl MCH 29.2 (26-32) pg MCHC 31.5 L (32-36) g/dl RDW 14.7 H (11.5-14.0) % Plt Count 142 L (150-450) K/mm3 MPV 9.5 (7.5-11.0) fl Gran % 85.8 H (36.0-66.0) % Eos # (Auto) 0.01 (0-0.5) Absolute Lymphs (auto) 0.43 L (1.0-4.6) Absolute Monos (auto) 0.25 (0.0-1.3) Lymphocytes % 8.6 L (24.0-44.0) % Monocytes % 5.0 (0.0-12.0) % Eosinophils % 0.2 (0.00-5.0) % Basophils % 0.4 (0.0-0.4) % Absolute Granulocytes 4.27 (1.4-6.9) Basophils # 0.02 (0-0.4) Sodium (137-145) mmol/L Potassium (3.5-5.1) mmol/L Chloride (98-107) mmol/L Carbon Dioxide (22-30) mmol/L Anion Gap (5-15) MEQ/L BUN (7-17) mg/dL Creatinine (0.52-1.04) mg/dL Estimated GFR ML/MIN Glucose (74-106) mg/dL Lactic Acid (0.4-2.0) Calcium (8.4-10.2) mg/dL Total Bilirubin (0.2-1.3) mg/dL AST (14-36) U/L ALT (0-35) U/L Alkaline Phosphatase (38-126) U/L Serum Total Protein (6.3-8.2) g/dL Albumin (3.5-5.0) g/dL Lipase (23-300) U/L Urine Color YELLOW (YELLOW) Urine Appearance SLIGHTLY CLOUDY (CLEAR) Urine pH 5.0 (5-6) Ur Specific [place] 1.026 (1.005-1.025) Urine Protein NEGATIVE (Negative) Urine Ketones NEGATIVE (NEGATIVE) Urine Blood LARGE (0-5) Fernando/ul Urine Nitrite NEGATIVE (NEGATIVE) Urine Bilirubin NEGATIVE (NEGATIVE) Urine Urobilinogen 2 (0-1) mg/dL Ur Leukocyte Esterase NEGATIVE (NEGATIVE) Urine WBC (Auto) 3-5 (0-5) /HPF Urine RBC (Auto) 16-25 (0-2) /HPF U Epithel Cells (Auto) RARE (FEW) /HPF Urine Bacteria (Auto) NONE (NEGATIVE) /HPF Urine Mucus (Auto) MODERATE (NEGATIVE) /HPF Urine Culture Reflexed NO (NO) Urine Glucose NEGATIVE (NEGATIVE) mg/dL Urine HCG, Qual (Negative) Slides for Path Review YES - Progress Progress: pain not gone completely <MARLINE PABON - Last Filed: 07/29/19 18:45> - Progress Progress: improved Counseled pt/family regarding: lab results, diagnosis, need for follow-up, rad results <ROSARIO HOOD - Last Filed: 07/29/19 21:12> - Progress Progress Note: 07/29/19 18:50 d/w , RECOMMENDED BASELINE LABS AND CALL HIM BACK. 07/29/19 18:55 CARE IS TRANSFERRED TO AT SHIFT CHANGE. (MARLINE PABON) 07/29/19 21:[address] bermudez. reviewed labs, urinalysis and ct scan abd/pelvis. picture c/w post op ileus. pt with no specific cause for fever, dr. bermudez wants to give 1gm iv rocephin. send rx home for doxycyline 100mg orally bid for 5 days ( ROSARIO HOOD) <MARLINE PABON - Last Filed: 07/29/19 18:45> - Departure Departure Disposition: Home Critical Care Time: No <ROSARIO HOOD - Last Filed: 07/29/19 21:12> - Departure Clinical Impression: Postoperative fever, Postoperative abdominal pain, Ileus, postoperative Condition: Stable Referrals: RUTHIE SHARIF MD [Primary Care Provider] - Additional Instructions: drink clear liquids next 12 to 24 hours before advancing diet. use tylenol and ibuprofen for pain and fever control. keep your appointment with dr. bermudez on saturday08/03/2019 Prescriptions: Doxycycline Hyclate 100 mg [Vibramycin 100 MG] 100 mg PO BID #14 tab
[2019-07-29 20:31] LABS: Slide Review 1 YES
[2019-07-29] MEDS ORDERED: ROCEPHIN 1 Gm-D5w 50 ml Bag** 1 G/50 ML IVPB IV STA (21:12)
[2019-07-29] MEDS ORDERED: ROCEPHIN 1 Gm-D5w 50 ml Bag** 1 G/50 ML IVPB IV ONE (21:15)
[2019-07-29 22:03] VITALS: BP 103/48; PULSE 90; O2SAT 97
--- NOTE | 2019-07-30 08:52 | XRAY ---
Indication: Abdominal pain and fever. Status post tubal ligation one day earlier. Multiple contiguous axial images obtained through the abdomen and pelvis without contrast as ordered. Comparison: None Lung bases demonstrates bibasilar dependent atelectasis without infiltrate or effusion. Heart is not enlarged. Small free air seen in the right upper quadrant and tiny subcutaneous air bubbles seen in the mid to lower anterior abdominal wall with bilateral tubal ligation clips. Above findings presumed related to recent surgery. No free fluid. Stomach and bowel loops appear nonobstructed. Mild air distended bowel loops with some fluid leveling favoring postoperative ileus. Mild scattered fecal debris predominantly in the ascending and descending colon. Splenomegaly measuring 13 cm greatest axial dimension. Remaining liver, gallbladder, pancreas, spleen, adrenal glands, kidneys, ureters, bladder, uterus, and aorta appear unremarkable for noncontrast exam. Osseous structures intact. Impression: 1. Anterior abdominal wall subcutaneous air bubbles and intra-abdominal free air both presumed related to recent surgery. 2. Mild air distended small/large bowel loops with fluid leveling favoring postoperative ileus. 3. Incidental splenomegaly.
== END 2019-07-29 22:06 | disposition home or self-care (01) ==
LOC: ED 17:30
DX: R50.82 Postprocedural fever (principal); G89.18 Other acute postprocedural pain; K56.7 Ileus, unspecified
CPT/HCPCS: 36000; 36415; 74176; 80053; 81001; 83605; 83690; 84703; 85025; 96360; 96365; 96374; 96375; 99284; J0696; J2270; J2405

== ENCOUNTER 2019-09-08 12:32 | Emergency (ER) | payer OTHER ==
--- NOTE | 2019-09-08 13:08 | ERPHSYRPT ---
- History of Present Illness Time Seen by Provider: 09/08/19 12:59 Source: patient, family Exam Limitations: no limitations Patient Subjective Stated Complaint: Pt was here 1.5 weeks ago and was admitted to the floor and had an emergent and infection removed all within her abdominal cavity and then was transferred to [facility] due to fluid around her lungs where one of her lungs collapsed, pt was release Saturday from [facility] with 2 Lasix pills and still had the fluid around her lungs, pt comes today with shortness of breath and pains going up her back to her lungs Triage Nursing Assessment: Pt brought to the ER by her step mom, pt is weak, vitals wnl, rates pain 10/10 in chest, pt has healing abdominal bikini line incision that is healing well, no edema, pt states that she has had diarrhea since her surgery last week Physician History: Is a 20-year-old female with a past medical history significant for recent abdominal surgery and total hysterectomy for a bilateral tubo-ovarian abscess She reportedly underwent a hysterectomy and bilateral oophorectomy for a ruptured tubo-ovarian abscess and recently was transferred to [address] given that her white blood cell count was increasing and the thought of her pleural effusions an increasing leukocytosis and possible need for pulmonology concern for what I think is a developing parapneumonic effusion. The patient reportedly was just discharged from the hospital couple days ago and was prescribed a short course of furosemide which she reportedly is finished. Was also prescribed Levaquin which she finished and has 2 more doses of Flagyl to take. She has been taking Percocet as needed for pain. Since that time, she is endorsed having increased shortness of breath, cough which is a dry cough, and left-sided chest pain which she describes as a sharp pain that is nonradiating constant and mild to moderate severity. She currently has no fevers or chills and is supposed to follow-up with her primary care provider in addition to her head mixer but has not scheduled an appointment to date. She was offered pain medication in emergency department but declined initially. Her project intern is Dr. Luna Allergies/Adverse Reactions: No Known Drug Allergies Allergy (Verified 09/08/19 12:48) Home Medications: Levothyroxine Sodium 100 mcg PO DAILY 09/08/19 [History] Hx Tetanus, Diphtheria Vaccination/Date Given: Yes Hx Influenza Vaccination/Date Given: No Hx Pneumococcal Vaccination/Date Given: No - Review of Systems Constitutional: Fatigue, Weakness, No Fever, No Chills Eyes: No Symptoms Respiratory: Cough, Dyspnea, Dyspnea on Exertion ([place]OL[place]ER[place]) Cardiac: Chest Pain Abdominal/Gastrointestinal: Abdominal Pain, No Nausea, No Vomiting Genitourinary Symptoms: No Dysuria, No Frequency, No Hematuria Musculoskeletal: No Symptoms Skin: No Symptoms Neurological: No Symptoms Psychological: No Symptoms Hematologic/Lymphatic: No Easy Bleeding All Other Systems: Reviewed and Negative - Past Medical History Pertinent Past Medical History: Yes Neurological History: No Pertinent History ENT History: No Pertinent History Cardiac History: No Pertinent History Respiratory History: No Pertinent History Endocrine Medical History: Hypothyroidism Musculoskeletal History: Arthritis GI Medical History: No Pertinent History History: No Pertinent History Psycho-Social History: No Pertinent History Female Reproductive Disorders: No Pertinent History Other Medical History: CLUB FOOT, HYPOTENSION, HYPOGLYCEMIA - Past Surgical History Past Surgical History: Yes Neuro Surgical History: No Pertinent History Cardiac: No Pertinent History Respiratory: No Pertinent History Gastrointestinal: No Pertinent History Genitourinary: No Pertinent History Musculoskeletal: Orthopedic Surgery Female Surgical History: Hysterectomy, Dilation & Curettage, Tubal Ligation 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, d&c - Social History Smoking Status: Former smoker How long have you smoked: years Exposure to second hand smoke: Yes Drug Use: none Patient Lives Alone: No Significant Family History: no pertinent family hx - Female History Hx Now: No - Nursing Vital Signs Nursing Vital Signs: Initial Vital Signs Temperature 97.9 F 09/08/19 12:34 Pulse Rate 68 09/08/19 12:34 Respiratory Rate 20 09/08/19 12:34 Blood Pressure 123/69 09/08/19 12:34 O2 Sat by Pulse Oximetry 100 09/08/19 12:34 Pain Scale Pain Intensity 2 - Physical Exam General Appearance: no apparent distress, alert Eye Exam: PERRL/EOMI, No scleral icterus, No EOM palsy/anisocoria Ears, Nose, Throat Exam: normal ENT inspection, TMs normal, pharynx normal, moist mucous membranes, No TM abnormal (R), No TM abnormal (L), No pharyngeal erythema, No tonsillar exudate Neck Exam: normal inspection, non-tender, supple, No meningismus Respiratory Exam: normal breath sounds, lungs clear, airway intact, No chest tenderness, No respiratory distress, No diminished breath sounds, No accessory muscle use Cardiovascular Exam: regular rate/rhythm, normal heart sounds, normal peripheral pulses, capillary refill <2 sec, No murmur, No friction rub, No gallop Gastrointestinal/Abdomen Exam: soft, tenderness, other (Surgical wound noted to suprapubic region. Surrounding wound appeared to be healing well with no sign of surrounding infection. Mild tenderness noted to suprapubic region), No mass , No guarding Back Exam: normal inspection Extremity Exam: normal inspection Neurologic Exam: alert, oriented x 3, cooperative Skin Exam: normal color, warm, dry, other (Refer to abdominal section for surgical wound details), No rash, No petechiae, No jaundice SpO2 Interpretation: normal SpO2: 100 - Course Nursing assessment & vital signs reviewed: Yes EKG Interpreted by Me: RATE, Sinus Rhythm, NORMAL AXIS, NORMAL INTERVALS, Other (Vent 70 bpm, RI interval 176, QRS duration 88 bpm, QT/QTc 426/321 ms, no evidence of acute myocardial ischemia or injury) Rhythm Strip: Rate - Radiology Exams Chest X-ray Interpretation: Interpreted by me, Reviewed by me, Other (Small pleural effusin with possible infiltrate in left upper to middle lobe) - CT Exams Chest CT Interpretation: Other (90 left upper lobe subsegmental pulmonary embolus. No distal infarct.Cardiomegaly with moderate pericardial effusion. Small bilateral pleural effusions with bibasilar compressive atelectasis) Ordered Tests: Active Orders 24 hr Category Date Time Status Subassemblies Wirer STAT Care 09/08/19 13:07 Active EKG-ER Only STAT Care 09/08/19 13:06 Active IV Insertion STAT Care 09/08/19 13:10 Active Pulse Oximetry (ED) STAT Care 09/08/19 13:06 Active CHEST 2 VIEWS (PA AND LAT) Stat Exams 09/08/19 13:07 Completed CHEST WITH CONTRAST [CT] Stat Exams 09/08/19 13:39 Completed BLOOD CULTURE Stat Lab 09/08/19 13:30 Received BMP Stat Lab 09/08/19 13:30 Completed CBC W DIFF Stat Lab 09/08/19 13:30 Completed Lactic Acid Stat Lab 09/08/19 15:06 Completed Manual Differential NC Stat Lab 09/08/19 13:30 Completed NT PRO BNP Stat Lab 09/08/19 13:30 Completed PROTIME WITH INR Stat Lab 09/08/19 13:00 Completed PTT Stat Lab 09/08/19 13:00 Completed TROPONIN Stat Lab 09/08/19 13:30 Completed UA W/RFX UR CULTURE Stat Lab 09/08/19 15:37 Completed Medication Summary Discontinued Medications Generic Name Dose Route Start Last Admin Trade Name Freq PRN Reason Stop Dose Admin Enoxaparin Sodium 64 mg 09/08/19 15:13 09/08/19 15:29 Enoxaparin Sodium SQ 09/08/19 15:14 64 mg 1XONLY ONE Administration Enoxaparin Sodium Confirm 09/08/19 15:19 Enoxaparin Sodium Administered 09/08/19 15:20 Dose 80 mg SQ .STK-MED ONE Sodium Chloride 1,000 mls @ 999 mls/hr 09/08/19 14:02 09/08/19 15:27 Sodium Chloride 0.9% 1000 Ml IV 09/08/19 15:02 Infused .Q1H1M STA Infusion Sodium Chloride Confirm 09/08/19 14:09 Sodium Chloride 0.9% 1000 Ml Administered 09/08/19 14:10 Dose 1,000 mls @ ud .ROUTE .STK-MED ONE Piperacillin Sod/Tazobactam 100 mls @ 200 mls/hr 09/08/19 15:11 09/08/19 15: 28 Sod 4.5 gm/ Dextrose IV 09/08/19 15:40 200 mls/hr STAT ONE Administration Dextrose Confirm 09/08/19 15:19 D5w 100ml Mini Bag 100 Ml Administered 09/08/19 15:20 Dose 100 mls @ ud IV .STK-MED ONE Oxycodone/Acetaminophen 2 tab 09/08/19 15:01 09/08/19 15:06 Percocet Tablet 5/325mg PO 09/08/19 15:02 2 tab STAT STA Administration Oxycodone/Acetaminophen Confirm 09/08/19 15:04 Percocet Tablet 5/325mg Administered 09/08/19 15:05 Dose 2 tab .ROUTE .STK-MED ONE Piperacillin Sod/Tazobactam Sod Confirm 09/08/19 15:18 Zosyn Inj Administered 09/08/19 15:19 Dose 4.5 gm IV .STK-MED ONE Lab/Rad Data: Laboratory Result Diagrams 09/08/19 13:30 09/08/19 13:30 Laboratory Results 09/08/19 09/08/19 09/08/19 Range/Units 15:37 15:06 13:30 WBC (4.0-10.5) K/mm3 RBC (4.1-5.4) M/mm3 Hgb (12.0-16.0) gm/dl Hct (35-47) % MCV (78-100) fl MCH (26-32) pg MCHC (32-36) g/dl RDW (11.5-14.0) % Plt Count (150-450) K/mm3 MPV (7.5-11.0) fl Segmented Neutrophils (36.0-66.0) % Band Neutrophils (0.0-2.0) % Lymphocytes (Manual) (24-44) % Monocytes (Manual) (0.0-12.0) % Toxic Granulation Platelet Estimate (NORMAL) RBC Morphology Polychromasia Anisocytosis PT (9.95-12.35) SECONDS INR (0.8-3.0) APTT (25.3-37.0) SECONDS Sodium 136 L (137-145) mmol/L Potassium 4.4 (3.5-5.1) mmol/L Chloride 97 L (98-107) mmol/L Carbon Dioxide 30 (22-30) mmol/L Anion Gap 13.1 (5-15) MEQ/L BUN 14 (7-17) mg/dL Creatinine 1.15 H (0.52-1.04) mg/dL Estimated GFR 59.7 ML/MIN Glucose 92 (74-106) mg/dL Lactic Acid 1.2 (0.4-2.0) Calcium 9.5 (8.4-10.2) mg/dL Troponin I < 0.012 (0.000-0.034) ng/mL NT-Pro-B Natriuret Pep 33.6 (0-450) pg/mL Urine Color YELLOW (YELLOW) Urine Appearance CLEAR (CLEAR) Urine pH 8.0 (5-6) Ur Specific [place] 1.048 (1.005-1.025) Urine Protein NEGATIVE (Negative) Urine Ketones NEGATIVE (NEGATIVE) Urine Blood NEGATIVE (0-5) Fernando/ul Urine Nitrite NEGATIVE (NEGATIVE) Urine Bilirubin NEGATIVE (NEGATIVE) Urine Urobilinogen NEGATIVE (0-1) mg/dL Ur Leukocyte Esterase TRACE (NEGATIVE) Urine WBC (Auto) NONE (0-5) /HPF Urine RBC (Auto) NONE (0-2) /HPF U Epithel Cells (Auto) RARE (FEW) /HPF Urine Bacteria (Auto) NONE (NEGATIVE) /HPF Urine Culture Reflexed NO (NO) Urine Glucose NEGATIVE (NEGATIVE) mg/dL 09/08/19 09/08/19 Range/Units 13:30 13:00 WBC 20.3 H (4.0-10.5) K/mm3 RBC 4.54 (4.1-5.4) M/mm3 Hgb 13.4 (12.0-16.0) gm/dl Hct 41.6 (35-47) % MCV 91.6 (78-100) fl MCH 29.5 (26-32) pg MCHC 32.2 (32-36) g/dl RDW 15.4 H (11.5-14.0) % Plt Count 589 H (150-450) K/mm3 MPV 7.9 (7.5-11.0) fl Segmented Neutrophils 86 H (36.0-66.0) % Band Neutrophils 3 H (0.0-2.0) % Lymphocytes (Manual) 4 L (24-44) % Monocytes (Manual) 7 (0.0-12.0) % Toxic Granulation 2+ Platelet Estimate INCREASED (NORMAL) RBC Morphology ABNORMAL Polychromasia RARE Anisocytosis 1+ PT 15.6 H (9.95-12.35) SECONDS INR 1.37 (0.8-3.0) APTT 36.4 (25.3-37.0) SECONDS Sodium (137-145) mmol/L Potassium (3.5-5.1) mmol/L Chloride (98-107) mmol/L Carbon Dioxide (22-30) mmol/L Anion Gap (5-15) MEQ/L BUN (7-17) mg/dL Creatinine (0.52-1.04) mg/dL Estimated GFR ML/MIN Glucose (74-106) mg/dL Lactic Acid (0.4-2.0) Calcium (8.4-10.2) mg/dL Troponin I (0.000-0.034) ng/mL NT-Pro-B Natriuret Pep (0-450) pg/mL Urine Color (YELLOW) Urine Appearance (CLEAR) Urine pH (5-6) Ur Specific [place] (1.005-1.025) Urine Protein (Negative) Urine Ketones (NEGATIVE) Urine Blood (0-5) Fernando/ul Urine Nitrite (NEGATIVE) Urine Bilirubin (NEGATIVE) Urine Urobilinogen (0-1) mg/dL Ur Leukocyte Esterase (NEGATIVE) Urine WBC (Auto) (0-5) /HPF Urine RBC (Auto) (0-2) /HPF U Epithel Cells (Auto) (FEW) /HPF Urine Bacteria (Auto) (NEGATIVE) /HPF Urine Culture Reflexed (NO) Urine Glucose (NEGATIVE) mg/dL - Progress Progress: unchanged Progress Note: 09/08/19 14:46 Crits were faxed from [facility]. It appears the patient was admitted after being transferred on September 01, 2018 for a ruptured tubo- ovarian abscess with secondary appendicitis. Hospital course was complicated with hypotension, CHUCKY, hyponatremia, hypokalemia and metabolic alkalosis. She was subsequently discharged with a prescription for Levaquin in addition to the metronidazole. She had a CT chest performed on September 02, 2019 shortness of breath. She was diagnosed with moderate bilateral pleural effusion associated atelectasis and a small pericardial effusion. He had a left lower extremity ultrasound which showed no evidence of DVT. Patient also was prescribed 2 tablets of furosemide, which she reportedly finished in addition to Percocet to take for pain at home. 09/08/19 15:20 2 the patient's ORE WASHER who recommended transfer to a tertiary facility that had ID capability and internal medicine capability given the patient's elevated white blood cell count and need for probably infectious disease and internal medicine to treat her underlying infection and pulmonary embolism. I spoke to the patient about this and she was reluctant to go back to [facility] and was requesting transfer to [facility]. 09/08/19 15:46 Dr. Griffith, Emergency Medicine Physician at [facility], and discussed the case with him. He stated be happy to agree to accept for transfer but thought the patient would be served best at [facility]. He wanted me to inform the patient that he would likely have to transfer this patient to [facility] and if she was still reluctant to go to [facility] he would accept for transfer. I spoke to the patient about this and she ultimately decided to go to [facility]. The transfer center is currently paged at this time. 09/08/19 16:[address] Yañez Wardrobe Stylist/Onc and [facility] hospitalist and discussed the case with them. Dr. Vinson agreed to admit and will have Wardrobe Stylist see the patient when she arrives at the facility. They will likely reimage the patient's abdomen when she arrives at this facility. I'll have radiology push her imaging, her CTA to the [facility]. 09/08/19 17:52 [facility] called back and informed us that they have a bed ready. Are currently contacting an ambulance service for transportation. The patient will be transferred via [facility]. Spoke to Dr. Luna, project intern, and he did have with his patient's ED course and plan for transfer. He was very thankful. The patient appeared to be nontoxic but wiped out in appearance. She had some mild hypotension which may be secondary to dehydration and volume loss given that she finished her Lasix therapy and really has not been eating or drinking over the last couple days. She was afebrile and laboratory work-up revealed an increasing leukocytosis which may be secondary to an ongoing intraperitoneal infection given her recent history of a ruptured TOA with secondary appendicitis and likely represents outpatient antibiotic failure at this time. The plan is to likely obtain abdominal imaging whenever she arrives at [facility] to eval for evidence of a developing abscess and she will continue to receive IV antibiotics during her admission. I spoke to the hospitalist who agreed with Jax for antibiotic therapy at this time. In terms of her pulmonary embolism she does not appear to be suffering from a submassive PE at this time and had no evidence of RV dilation or signs of pulmonary hypertension and therefore do not believe catheter directed fibrinolytics are warranted at this time. She did receive a 1 mg/kg dose of Lovenox during her ED stay for anticoagulation. This likely represents a provoked PE given her recent surgery and recent immobilization due to her illness. I do not feel a coagulopathy work -up is warranted at this time. Patient had some mild hyponatremia in addition to hypochloremia which is likely secondary to dehydration for which she received IV fluids during this ED visit. Ultimately, the patient was transferred to [facility] for further evaluation and management. Discussed with Dr.: Opal (Recommended transfer to tertiary facility, ideally [place]), Other (Dr. Vinson and Dr. Yañez) Counseled pt/family regarding: lab results, diagnosis, rad results - Departure Departure Disposition: Home, In-patient Admission, Extended Care Facility Clinical Impression: Abdominal pain, Leukocytosis, Postoperative abdominal pain, Pericardial effusion, Pleural effusion, Hyponatremia, Hypochloremia, Hypotension Condition: Stable Critical Care Time: No Referrals: RUTHIE SHARIF MD [Primary Care Provider] -
--- NOTE | 2019-09-08 13:31 | XRAY ---
Indication: Chest pain and dyspnea. Comparison: None PA/lateral chest demonstrates mild left base infiltrate/atelectasis/effusion. Remaining heart and lungs unremarkable. Bony thorax intact with pectus excavatum deformity.
[2019-09-08 13:38] LABS: Hematocrit 41.6 % (35-47); Hemoglobin 13.4 gm/dl (12.0-16.0); Mean Cell Volume 91.6 fl (78-100); Mean Corpuscular Hemoglobin 29.5 pg (26-32); Mean Corpuscular Hgb Concent. 32.2 g/dl (32-36); Mean Platelet Volume 7.9 fl (7.5-11.0); Platelet Count 589 K/mm3 (150-450); Red Blood Count 4.54 M/mm3 (4.1-5.4); Red Cell Distribution Width 15.4 % (11.5-14.0); White Blood Count 20.3 K/mm3 (4.0-10.5)
[2019-09-08] MEDS ORDERED: Sodium Chloride 0.9% 1000 ML 1,000 ML IV STA (14:02)
[2019-09-08 14:04] LABS: ANION GAP 13.1 MEQ/L (5-15); BLOOD UREA NITROGEN 14 mg/dL (7-17); CHLORIDE 97 mmol/L (98-107); Calcium 9.5 mg/dL (8.4-10.2); Carbon Dioxide 30 mmol/L (22-30); Creatinine 1 1.15 mg/dL (0.52-1.04); Glucose 92 mg/dL (74-106); NT PRO BNP 33.6 pg/mL (0-450); Potassium 4.4 mmol/L (3.5-5.1); SODIUM 136 mmol/L (137-145)
[2019-09-08] MEDS ORDERED: Sodium Chloride 0.9% 1000 ML 1,000 ML ONE (14:09)
[2019-09-08 14:12] LABS: TROPONIN < 0.012 ng/mL (0.000-0.034)
--- NOTE | 2019-09-08 14:53 | XRAY ---
Indication: Chest pain and worsening short of breath. Back pain. Recent hysterectomy. Multiple contiguous axial images obtained through the chest using 80 cc Isovue 370 contrast and PE protocol. Comparison: None There is good opacification of the pulmonary arteries including lobar and segmental branches. Tiny nonoccluding pulmonary embolus seen in the apical posterior segmental branch of the left upper lobe. No other pulmonary embolus. Heart is enlarged with moderate pericardial effusion. Aorta is normal in course and caliber. No pathologic mediastinal/hilar lymphadenopathy. Lungs demonstrate small bilateral dependent effusions, right greater than left. Also mild bilateral lower lobe compressive atelectasis, left greater than right. Upper lungs are clear. Bony thorax intact with pectus excavatum deformity. Limited upper abdomen is unremarkable. Impression: 1. Tiny left upper lobe segmental pulmonary embolus. No distal infarct. 2. Cardiomegaly with moderate pericardial effusion. Echocardiogram may yield further information. 3. Small bilateral pleural effusions with bibasilar compressive atelectasis. Findings improved with respect to CT abdomen/pelvis September 01, 2019.
[2019-09-08] MEDS ORDERED: PERCOCET TABLET 5/325MG PO STA (15:01)
[2019-09-08] MEDS ORDERED: PERCOCET TABLET 5/325MG ONE (15:04)
[2019-09-08 15:08] LABS: INR 1.37 (0.8-3.0); PROTIME 15.6 SECONDS (9.95-12.35)
[2019-09-08 15:11] LABS: PTT 36.4 SECONDS (25.3-37.0)
[2019-09-08] MEDS ORDERED: Zosyn INJ 4.5 GM in D5w 100ML Mini Bag 100 ML 100 ML IV ONE (15:11)
[2019-09-08] MEDS ORDERED: ENOXAPARIN SODIUM SQ ONE ×2 (15:13→15:19)
[2019-09-08] MEDS ORDERED: Zosyn INJ IV ONE (15:18)
[2019-09-08] MEDS ORDERED: D5w 100ML Mini Bag 100 ML 100 ML IV ONE (15:19)
[2019-09-08 15:31] LABS: ANISOCYTOSIS 1+; BAND 3 % (0.0-2.0); Lymphocytes 4 % (24-44); Monocyte 7 % (0.0-12.0); Neutrophils 86 % (36.0-66.0); Platelet Estimate INCREASED (NORMAL); Polychromasia RARE; Total Cells Counted 100; Toxic Granulation 2+
[2019-09-08 15:43] LABS: Appearance CLEAR (CLEAR); Bilirubin NEGATIVE (NEGATIVE); Blood NEGATIVE Ery/ul (0-5); Epithelial Cells RARE /HPF (FEW); Glucose NEGATIVE (NEGATIVE); Ketones NEGATIVE (NEGATIVE); Leukocyte Esterase TRACE (NEGATIVE); Nitrite NEGATIVE (NEGATIVE); Protein,Urine Dip NEGATIVE (Negative); Specific Gravity 1.048 (1.005-1.025); Urobilinogen NEGATIVE mg/dL (0-1)
[2019-09-08 17:10] VITALS: BP 104/60
[2019-09-08 18:02] VITALS: PULSE 61
[2019-09-08 18:26] VITALS: O2SAT 100
[2019-09-08] MEDS ORDERED: Lactated Ringers 1,000 ML IV ONE (18:34)
[2019-09-08] MEDS ORDERED: Lactated Ringers 1,000 ML IV SCH (19:00)
== END 2019-09-08 19:15 | disposition short-term general hospital (02) ==
LOC: ED 12:32
DX: R10.9 Unspecified abdominal pain (principal); G89.18 Other acute postprocedural pain; D72.829 Elevated white blood cell count, unspecified; J90 Pleural effusion, not elsewhere classified; I31.3 Pericardial effusion (noninflammatory); E87.1 Hypo-osmolality and hyponatremia; E87.8 Other disorders of electrolyte and fluid balance, not elsewhere classified; I95.9 Hypotension, unspecified; Z79.899 Other long term (current) drug therapy
CPT/HCPCS: 36000; 36415; 71046; 71260; 80048; 81001; 83605; 83880; 84484; 85025; 85610; 85730; 87040; 93005; 93041; 94760; 96360; 96361; 96365; 96372; 99285; J1650; J2543; A9270-GY

== ENCOUNTER 2020-11-22 07:04 | Day surgery (SDC) | payer OTHER ==
[~2020-11-22 07:04] MED LIST changes: +KEFZOL 1 GM/50 ML PREMIX** 1 GM/50 ML IVPB IV SCH; -Lactated Ringers 1,000 ML IV ONE; +Lactated Ringers 1,000 ML IV SCH; -Sensorcaine 0.25% 10 ML ONE
[2020-11-22 07:53] LABS: Hematocrit 42.6 % (35-47); Hemoglobin 13.6 gm/dl (12.0-16.0); Mean Cell Volume 95.5 fl (78-100); Mean Corpuscular Hemoglobin 30.5 pg (26-32); Mean Corpuscular Hgb Concent. 31.9 g/dl (32-36); Mean Platelet Volume 9.7 fl (7.5-11.0); Platelet Count 204 K/mm3 (150-450); Red Blood Count 4.46 M/mm3 (4.1-5.4); Red Cell Distribution Width 13.3 % (11.5-14.0); White Blood Count 7.2 K/mm3 (4.0-10.5)
[2020-11-22 08:02] LABS: ALKALINE PHOSPHATASE 63 U/L (38-126); ANION GAP 9.7 MEQ/L (5-15); BLOOD UREA NITROGEN 13 mg/dL (7-17); CHLORIDE 107 mmol/L (98-107); Carbon Dioxide 27 mmol/L (22-30); Creatinine 1 0.68 mg/dL (0.52-1.04); EST GLOMERULAR FILTRATION RATE > 60.0 ML/MIN; Glucose 89 mg/dL (74-106); Potassium 3.8 mmol/L (3.5-5.1); SGOT/AST 26 U/L (14-36); SGPT/ALT 16 U/L (0-35); SODIUM 140 mmol/L (137-145); Total Protein 6.5 g/dL (6.3-8.2)
[2020-11-22] MEDS ORDERED: Zofran 4 MG/2 ML VIAL ONE (09:04)
[2020-11-22] MEDS ORDERED: Versed 2 MG/2 ML Injection ONE (09:04)
[2020-11-22] MEDS ORDERED: SUBLIMAZE 100 MCG/2 ML ONE ×2 (09:04→10:23)
[2020-11-22] MEDS ORDERED: Decadron 4 MG INJ ONE (09:04)
[2020-11-22] MEDS ORDERED: Zemuron 100 MG/10 ML ONE (09:04)
[2020-11-22] MEDS ORDERED: Xylocaine-Mpf 2% 5 Ml Vial ONE (09:04)
[2020-11-22] MEDS ORDERED: BRIDION 200MG/2ML IV ONE (09:04)
[2020-11-22] MEDS ORDERED: TORAdol 30 mg Injection ONE (09:04)
[2020-11-22] MEDS ORDERED: DIPRIVAN 200 MG/20 ML IV ONE (09:04)
[2020-11-22] MEDS ORDERED: MORPHINE SULFATE 10 MG/ML ONE (10:23)
[2020-11-22] MEDS ORDERED: Hydromorphone 1 mg/ml Injection ONE (10:23)
[2020-11-22 11:37] VITALS: BP 104/61; PULSE 64; O2SAT 98
--- NOTE | 2020-11-23 09:46 | OP ---
SURGERY DATE/TIME: 11/22/2020 0911 PREOPERATIVE DIAGNOSIS: Rectocele. POSTOPERATIVE DIAGNOSIS: Rectocele. PROCEDURE: Posterior colporrhaphy. SURGEON: Jeevan Luna D.O. STADIUM MANAGER: Cassidy Duenas, surgical techs. ANESTHESIA: General. ESTIMATED BLOOD LOSS: 50 cc. COMPLICATIONS: None. INDICATIONS: The risks, benefits, indications of the surgery were discussed with the patient prior to procedure. The patient understood the risk of infection, bleeding, bowel injury, bladder injury, ureteral injury, pelvic infection associated with the surgery however desires to have this surgery as a possible means to alleviate her current medical condition. DESCRIPTION OF PROCEDURE AND FINDINGS: The patient is taken to the operating room, given general sedation, placed in dorsal lithotomy position. At this point an inverted triangle fragment of skin was cut in the perineum. The posterior vaginal wall was then opened vertically in the midline up and passed through the rectocele. The site edges were held and splayed laterally with a series of Allis clamps. The vaginal mucosa was then dissected off laterally with a combination of sharp and blunt dissection exposing the perirectal fascia. The perirectal fascia was then re-approximated with interrupted 2-0 Vicryl sutures to draw the lateral folds together and tuck the rectocele back. Deep interrupted suture of 0 Vicryl were used to re-approximate the fibers in the muscles. The excess vaginal mucosa was then trimmed. The posterior vaginal wall was closed with running locked 0 Vicryl sutures to the distal field of the vagina. From this point the superficial peritoneal muscles were closed with running unlocked 0 Vicryl suture and the peroneal skin was closed interrupted fashion using 2-0 chromic suture. From this point the patient tolerated the procedure well. All instruments and laps were accounted for x2. The patient was then taken out of the dorsal lithotomy position and was then to the recovery room in stable condition. The patient had Iodoform gauze placed in the vaginal area which will be removed prior to her being discharged home.
== END 2020-11-22 11:55 | disposition home or self-care (01) ==
LOC: SDC 07:04
PROVIDERS: ATTEND Obstetrics & Gynecology
DX: N81.6 Rectocele (principal)
CPT/HCPCS: 36415; 57250; 80053; 85027; J0690; J1100; J1170; J1885; J2250; J2270; J2405; J2704; J3010

== ENCOUNTER 2021-04-15 11:08 | Emergency (ER) | payer OTHER ==
[2021-04-15] MEDS ORDERED: TETRACAINE 0.5% STERI-UNIT SOL OP ONE (11:14)
[2021-04-15] MEDS ORDERED: Fluor-I-Strip/Ful-Flo OP ONE ×2 (11:15→11:19)
[2021-04-15] MEDS ORDERED: Eye-Stream Solution ONE (11:15)
[2021-04-15] MEDS ORDERED: Eye-Stream Solution OP ONE (11:19)
[2021-04-15] MEDS ORDERED: TETRACAINE 0.5% STERI-UNIT SOL OP STA (11:19)
[2021-04-15] MEDS ORDERED: Ocuflox OPHTHALMIC 5 ML OP ONE (12:06)
--- NOTE | 2021-04-15 12:09 | ERPHSYRPT ---
- History of Present Illness Time Seen by Provider: 04/15/21 11:23 Source: patient Exam Limitations: no limitations Patient Subjective Stated Complaint: Right eye injury/pain Triage Nursing Assessment: Patient ambulated back to ED and transferred self to bed. Patient A+O X3. Patient's skin pink, warm and dry. Patient complains of right eye injury/pain. Patient states her daughter poked her in the right eye while sleeping this am. Patient's right eye noted to be red, swollen and painful. Patient complains of pain 8/10. Physician History: 30 years old female presented in the ER with chief complaint of right eye pain after her daughter accidentally poked in her eye while sleeping this a.m. with sudden onset sharp shooting pain moderate to severe intensity and feeling of foreign body sensation. Patient reports watering and light sensitivity with some blurry vision as well. Minimal swelling of upper lid. Up-to-date with tetanus. Timing/Duration: today, sudden, worse Location: right eye Severity: moderate Apparent Injury: yes Associated Symptoms: pain, sensitivity to light, eyelid swelling Visual Assistive Devices: Glasses Chemical Exposure: No Allergies/Adverse Reactions: No Known Drug Allergies Allergy (Verified 04/15/21 11:15) Hx Tetanus, Diphtheria Vaccination/Date Given: Yes Hx Influenza Vaccination/Date Given: No Hx Pneumococcal Vaccination/Date Given: No Immunizations Up to Date: Yes Travel Risk - International Travel Have you traveled outside of the country in past 3 weeks: No - Coronavirus Screening Are you exhibiting any of the following symptoms?: No Close contact with a COVID-19 positive Pt in past 14-21 Days: No - Vaccine Status Have you recieved a Covid-19 vaccination: No - Review of Systems Constitutional: No Symptoms Eyes: Eye Pain, Eye Redness, Tearing, Foreign Body Sensation Ears, Nose, & Throat: No Symptoms Respiratory: No Symptoms Cardiac: No Symptoms Skin: No Symptoms Neurological: No Symptoms Hematologic/Lymphatic: No Symptoms Immunological/Allergic: No Symptoms - Past Medical History Pertinent Past Medical History: Yes Neurological History: No Pertinent History ENT History: No Pertinent History Cardiac History: No Pertinent History Respiratory History: No Pertinent History Endocrine Medical History: Hypothyroidism Musculoskeletal History: Arthritis GI Medical History: No Pertinent History History: No Pertinent History Psycho-Social History: No Pertinent History Female Reproductive Disorders: No Pertinent History Other Medical History: CLUB FOOT, HYPOTENSION, HYPOGLYCEMIA - Past Surgical History Past Surgical History: Yes Neuro Surgical History: No Pertinent History Cardiac: No Pertinent History Respiratory: No Pertinent History Gastrointestinal: No Pertinent History Genitourinary: No Pertinent History Musculoskeletal: Orthopedic Surgery Female Surgical History: Hysterectomy, Dilation & Curettage, Tubal Ligation 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, d&c - Social History Smoking Status: Never smoker How long have you smoked: years Exposure to second hand smoke: Yes Drug Use: none Patient Lives Alone: No Significant Family History: no pertinent family hx - Female History Hx Now: No - Nursing Vital Signs Nursing Vital Signs: Initial Vital Signs Temperature 98.0 F 04/15/21 11:16 Pulse Rate 65 04/15/21 11:16 Respiratory Rate 18 04/15/21 11:16 Blood Pressure 131/88 04/15/21 11:16 O2 Sat by Pulse Oximetry 100 04/15/21 11:16 Pain Scale Pain Intensity 6 - Physical Exam General Appearance: no apparent distress, alert Vision Acuity Degree Evaluation Phase: Corrected Vision Acuity Right Eye: 20/70 Vision Acuity Left Eye: 20/30 Eye Exam: right eye: eyelid inflammation (Upper), vision changes, other (Abrasion right thigh 9 o'clock position lateral side of pupil with positive fluorescein uptake. No hyphema), left eye: normal inspection, bilateral eye: PERRL, EOMI Ears, Nose, Throat Exam: normal ENT inspection, TMs normal, pharynx normal, moist mucous membranes Neck Exam: normal inspection, non-tender, supple, full range of motion Respiratory Exam: normal breath sounds, lungs clear Cardiovascular Exam: regular rate/rhythm, normal heart sounds Neurologic: alert, oriented x 3, cooperative, card lacer jacquard II-XII nml as tested, normal mood/affect Skin Exam: normal color SpO2 Interpretation: normal SpO2: 100 O2 Delivery: Room Air Ordered Tests: Active Orders 24 hr Category Date Time Status Visual Acuity STAT Care 04/15/21 11:41 Completed Medication Summary Discontinued Medications Generic Name Dose Route Start Last Admin Trade Name Freq PRN Reason Stop Dose Admin Eye Irrigation Solution Confirm 04/15/21 11:15 Eye-Stream Solution Administered 04/15/21 11:16 Dose 30 ml .ROUTE .STK-MED ONE Eye Irrigation Solution 15 ml 04/15/21 11:19 04/15/21 11:20 Eye-Stream Solution OP 04/15/21 11:20 15 ml STAT ONE Administration Fluorescein Sodium Confirm 04/15/21 11:15 Jqfna-K-Vljvv/Ful-Sujit Administered 04/15/21 11:16 Dose 1 mg OP .STK-MED ONE Fluorescein Sodium 1 mg 04/15/21 11:19 04/15/21 11:20 Ijooh-Y-Iekuq/Ful-Sujit OP 04/15/21 11:20 1 mg STAT ONE Administration Ofloxacin 5 ml 04/15/21 13:00 04/15/21 12:06 Ocuflox Ophthalmic 5 Ml OP 05/15/21 12:59 5 ml Q6HRT ADAN Administration Ofloxacin Confirm 04/15/21 12:06 Ocuflox Ophthalmic 5 Ml Administered 04/15/21 12:07 Dose 5 ml OP .STK-MED ONE Tetracaine HCl Confirm 04/15/21 11:14 Tetracaine 0.5% Steri-Unit Nona Administered 04/15/21 11:15 Dose 4 ml OP .STK-MED ONE Tetracaine HCl 4 ml 04/15/21 11:19 04/15/21 11:20 Tetracaine 0.5% Steri-Unit Nona OP 04/15/21 11:20 4 ml STAT STA Administration - Progress Progress: improved Progress Note: 04/15/21 12:05 She is up-to-date with tetanus. Tetracaine placed in, fluorescein uptake positive on the right 9 o'clock position closer to pupil. Given pain medication and started on ofloxacin and patient would follow-up with optometry today's, appointment is made and later with ophthalmology. Discussed signs symptoms of worsening needing return to ER which he seems understanding. Counseled pt/family regarding: diagnosis, need for follow-up - Departure Departure Disposition: Home Clinical Impression: Corneal abrasion, right Qualifiers: Encounter type: initial encounter Qualified Code(s): S05.01XA - Injury of conjunctiva and corneal abrasion without foreign body, right eye, initial encounter Condition: Stable Critical Care Time: No Referrals: RUTHIE SHARIF MD [Primary Care Provider] - Follow Up with PCP/3 days Instructions: Corneal Abrasion (DC) Additional Instructions: Take pain medications as needed. Continue with eyedrops. Used to drops right eye every 6 hours for 5 to 7 days. Follow-up with ophthalmology/optometry as recommended. Return to ER for worsening pain, visual disturbance, discharge etc. Prescriptions: Hydrocodone/APAP 5/325 [[place] 5/325 mg] 1 each PO Q6H PRN PRN #10 tablet MDD 4 PRN Reason: Pain
[2021-04-15 12:12] VITALS: BP 117/78; PULSE 72
[2021-04-15] MEDS ORDERED: Ocuflox OPHTHALMIC 5 ML OP SCH (13:00)
[2021-04-15 15:53] VITALS: O2SAT 100
== END 2021-04-15 12:12 | disposition home or self-care (01) ==
LOC: ED 11:08
DX: S05.01XA Injury of conjunctiva and corneal abrasion without foreign body, right eye, initial encounter (principal); W22.8XXA Striking against or struck by other objects, initial encounter
CPT/HCPCS: 99283; A9270-GY

== ENCOUNTER 2021-07-28 18:51 | Emergency (ER) | payer OTHER ==
[2021-07-28] MEDS ORDERED: Sodium Chloride 0.9% 1000 ML 1,000 ML IV STA (19:05)
--- NOTE | 2021-07-28 19:05 | ERPHSYRPT ---
- History of Present Illness Time Seen by Provider: 07/28/21 19:05 Historian: patient Exam Limitations: no limitations Patient Subjective Stated Complaint: Chest pain Triage Nursing Assessment: Patient ambulated back to ED and transferred self to bed. Patient A+O x3. Patient's skin flushed, warm and dry. Patient complains of fever, headache, chest pain, SOB, body aches and fatigue that started this am. Patient complains of chest pain and headache 04/30. Physician History: This is a 30-year-old white female who last night began having body aches and pains and headache. She was coughing today on her symptoms became more severe. She has nausea no vomiting and no diarrhea. She has been coughing. She does not have any chest pain. She complains of mild shortness of breath. She has not been exposed anyone with known viral illnesses. Timing/Duration: yesterday Activities at Onset: none Quality: aching Location: other (Annualized) Chest Pain Radiation: no radiation Severity of Pain-Max: mild Severity of Pain-Current: mild (To moderate to moderate) Modifying Factors: Improves With: coughing Associated Symptoms: nausea, headache, other (Muscle aches and pains) Prior Chest Pain/Cardiac Workup: no prior chest pain Nitro Today/Relief: no nitro taken today Aspirin Treatment Today: no aspirin today Allergies/Adverse Reactions: No Known Drug Allergies Allergy (Verified 07/28/21 18:53) Hx Tetanus, Diphtheria Vaccination/Date Given: Yes Hx Influenza Vaccination/Date Given: No Hx Pneumococcal Vaccination/Date Given: No Immunizations Up to Date: Yes Travel Risk - International Travel Have you traveled outside of the country in past 3 weeks: No - Coronavirus Screening Are you exhibiting any of the following symptoms?: Yes Symptoms: Fever Close contact with a COVID-19 positive Pt in past 14-21 Days: Yes - Vaccine Status Have you recieved a Covid-19 vaccination: No - Review of Systems Constitutional: Fever, Weakness Eyes: No Symptoms Ears, Nose, & Throat: No Symptoms Respiratory: Cough, Dyspnea Cardiac: Chest Pain (With coughing) Abdominal/Gastrointestinal: Nausea, No Abdominal Pain, No Vomiting, No Diarrhea, No Constipation Genitourinary Symptoms: No Symptoms Musculoskeletal: Arthralgias, Myalgias Skin: No Symptoms Neurological: No Symptoms Psychological: No Symptoms Endocrine: No Symptoms Hematologic/Lymphatic: No Symptoms Immunological/Allergic: No Symptoms All Other Systems: Reviewed and Negative - Past Medical History Pertinent Past Medical History: Yes Neurological History: No Pertinent History ENT History: No Pertinent History Cardiac History: No Pertinent History Respiratory History: No Pertinent History Endocrine Medical History: Hypothyroidism Musculoskeletal History: Arthritis GI Medical History: No Pertinent History History: No Pertinent History Psycho-Social History: No Pertinent History Female Reproductive Disorders: No Pertinent History Other Medical History: CLUB FOOT, HYPOTENSION, HYPOGLYCEMIA - Past Surgical History Past Surgical History: Yes Neuro Surgical History: No Pertinent History Cardiac: No Pertinent History Respiratory: No Pertinent History Gastrointestinal: No Pertinent History Genitourinary: No Pertinent History Musculoskeletal: Orthopedic Surgery Female Surgical History: Hysterectomy, Dilation & Curettage, Tubal Ligation 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, d&c - Social History Smoking Status: Former smoker How long have you smoked: years Exposure to second hand smoke: Yes Drug Use: none Patient Lives Alone: No Significant Family History: no pertinent family hx - Female History Hx Now: No - Nursing Vital Signs Nursing Vital Signs: Initial Vital Signs Temperature 100.9 F 07/28/21 18:54 Pulse Rate 74 07/28/21 18:54 Respiratory Rate 18 07/28/21 18:54 Blood Pressure 104/55 07/28/21 18:54 O2 Sat by Pulse Oximetry 98 07/28/21 18:54 Pain Scale Pain Intensity 6 - Physical Exam General Appearance: no apparent distress, alert, anxiety Eye Exam: PERRL/EOMI, eyes nml inspection Ears, Nose, Throat Exam: normal ENT inspection, moist mucous membranes Neck Exam: normal inspection, non-tender, supple, full range of motion Respiratory Exam: normal breath sounds, chest tenderness, lungs clear (Coughing), airway intact, No respiratory distress Cardiovascular Exam: regular rate/rhythm, normal heart sounds, normal peripheral pulses Gastrointestinal/Abdomen Exam: soft, normal bowel sounds, tenderness Pelvic Exam: not done Rectal Exam: not done Back Exam: normal inspection, normal range of motion, No CVA tenderness, No vertebral tenderness Extremity Exam: normal inspection, normal range of motion, pelvis stable Neurologic Exam: alert, oriented x 3, cooperative, animal stunner II-XII nml as tested, normal mood/affect, nml cerebellar function, nml station & gait, sensation nml Skin Exam: normal color, warm, dry Lymphatic Exam: No adenopathy SpO2 Interpretation: normal SpO2: 98 O2 Delivery: Room Air - Course Nursing assessment & vital signs reviewed: Yes EKG Interpreted by Me: RATE (76), NORMAL AXIS, LAFB, NORMAL INTERVALS, NORMAL QRS, Other (No acute ischemic changes on today's EKG. No comparison EKG available) Ordered Tests: Active Orders 24 hr Category Date Time Status EKG-ER Only STAT Care 07/28/21 19:06 Active IV Insertion STAT Care 07/28/21 19:05 Active Isolation, Initiate & Maintain STAT Care 07/28/21 19:05 Active Pulse Oximetry (ED) ROUTINE Care 07/28/21 19:06 Active CHEST 1 VIEW (PORTABLE) Stat Exams 07/28/21 19:08 Taken BLOOD CULTURE Stat Lab 07/28/21 19:00 Received CBC W DIFF Stat Lab 07/28/21 19:00 Completed CMP Stat Lab 07/28/21 19:00 Completed D-DIMER QUANTITATIVE Stat Lab 07/28/21 19:00 Completed Ferritin Stat Lab 07/28/21 19:00 Completed INFLUENZA A+B BERNIE Stat Lab 07/28/21 19:20 Completed LDH-LACTATE DEHYDROGENASE Stat Lab 07/28/21 19:00 Completed Lactic Acid Stat Lab 07/28/21 19:20 Completed [place] Screen Stat Lab 07/28/21 19:00 Completed TROPONIN Q3H Lab 07/28/21 19:00 Completed TROPONIN Q3H Lab 07/28/21 22:15 Ordered TROPONIN Q3H Lab 07/29/21 01:15 Ordered TROPONIN Q3H Lab 07/29/21 04:15 Ordered TROPONIN Q3H Lab 07/29/21 07:15 Ordered UA W/RFX UR CULTURE Stat Lab 07/28/21 19:13 Completed Medication Summary Discontinued Medications Generic Name Dose Route Start Last Admin Trade Name Freq PRN Reason Stop Dose Admin Hydrocodone Bitart/Acetaminophen 10 ml 07/28/21 19:08 07/28/21 19:20 Hydrocodone/Acetaminophen 5 Ml Udcup PO 07/28/21 19:09 10 ml STAT STA Administration Hydrocodone Bitart/Acetaminophen Confirm 07/28/21 19:18 Hydrocodone/Acetaminophen 5 Ml Udcup Administered 07/28/21 19:19 Dose 10 ml .ROUTE .STK-MED ONE Sodium Chloride 1,000 mls @ 999 mls/hr 07/28/21 19:05 07/28/21 20:12 Sodium Chloride 0.9% 1000 Ml IV 07/28/21 20:05 Infused .Q1H1M STA Infusion Sodium Chloride Confirm 07/28/21 19:18 Sodium Chloride 0.9% 1000 Ml Administered 07/28/21 19:19 Dose 1,000 mls @ ud .ROUTE .K-MED ONE Lab/Rad Data: Laboratory Result Diagrams 07/28/21 19:00 07/28/21 19:00 Laboratory Results 07/28/21 07/28/21 07/28/21 Range/Units 19:20 19:20 19:20 WBC (4.0-10.5) K/mm3 RBC (4.1-5.4) M/mm3 Hgb (12.0-16.0) gm/dl Hct (35-47) % MCV (78-100) fl MCH (26-32) pg MCHC (32-36) g/dl RDW (11.5-14.0) % Plt Count (150-450) K/mm3 MPV (7.5-11.0) fl Gran % (36.0-66.0) % Eos # (Auto) (0-0.5) Absolute Lymphs (auto) (1.0-4.6) Absolute Monos (auto) (0.0-1.3) Lymphocytes % (24.0-44.0) % Monocytes % (0.0-12.0) % Eosinophils % (0.00-5.0) % Basophils % (0.0-0.4) % Absolute Granulocytes (1.4-6.9) Basophils # (0-0.4) D-Dimer (215-500) ng/mL Sodium (137-145) mmol/L Potassium (3.5-5.1) mmol/L Chloride (98-107) mmol/L Carbon Dioxide (22-30) mmol/L Anion Gap (5-15) MEQ/L BUN (7-17) mg/dL Creatinine (0.52-1.04) mg/dL Estimated GFR ML/MIN Glucose (74-106) mg/dL Lactic Acid 0.9 (0.4-2.0) Calcium (8.4-10.2) mg/dL Ferritin (6.24-137) ng/mL Total Bilirubin (0.2-1.3) mg/dL AST (14-36) U/L ALT (0-35) U/L Alkaline Phosphatase (38-126) U/L Lactate Dehydrogenase (120-246) U/L Troponin I (0.000-0.034) ng/mL Serum Total Protein (6.3-8.2) g/dL Albumin (3.5-5.0) g/dL Urine Color (YELLOW) Urine Appearance (CLEAR) Urine pH (5-6) Ur Specific [place] (1.005-1.025) Urine Protein (Negative) Urine Ketones (NEGATIVE) Urine Blood (0-5) Fernando/ul Urine Nitrite (NEGATIVE) Urine Bilirubin (NEGATIVE) Urine Urobilinogen (0-1) mg/dL Ur Leukocyte Esterase (NEGATIVE) Urine WBC (Auto) (0-5) /HPF Urine RBC (Auto) (0-2) /HPF U Epithel Cells (Auto) (FEW) /HPF Urine Bacteria (Auto) (NEGATIVE) /HPF Urine Mucus (Auto) (NEGATIVE) /HPF Urine Culture Reflexed (NO) Urine Glucose (NEGATIVE) mg/dL Monoscreen (Negative) Influenza Type A Ag NEGATIVE (NEGATIVE) Influenza Type B Ag NEGATIVE (NEGATIVE) Group A Strep Antibody NOT DETECTED (NEGATIVE) 07/28/21 07/28/21 07/28/21 Range/Units 19:13 19:00 19:00 WBC 6.2 (4.0-10.5) K/mm3 RBC 4.59 (4.1-5.4) M/mm3 Hgb 14.0 (12.0-16.0) gm/dl Hct 43.6 (35-47) % MCV 95.0 (78-100) fl MCH 30.5 (26-32) pg MCHC 32.1 (32-36) g/dl RDW 12.4 (11.5-14.0) % Plt Count 217 (150-450) K/mm3 MPV 10.2 (7.5-11.0) fl Gran % 78.1 H (36.0-66.0) % Eos # (Auto) 0.08 (0-0.5) Absolute Lymphs (auto) 0.45 L (1.0-4.6) Absolute Monos (auto) 0.79 (0.0-1.3) Lymphocytes % 7.3 L (24.0-44.0) % Monocytes % 12.8 H (0.0-12.0) % Eosinophils % 1.3 (0.00-5.0) % Basophils % 0.5 (0.0-0.4) % Absolute Granulocytes 4.80 (1.4-6.9) Basophils # 0.03 (0-0.4) D-Dimer (215-500) ng/mL Sodium (137-145) mmol/L Potassium (3.5-5.1) mmol/L Chloride (98-107) mmol/L Carbon Dioxide (22-30) mmol/L Anion Gap (5-15) MEQ/L BUN (7-17) mg/dL Creatinine (0.52-1.04) mg/dL Estimated GFR ML/MIN Glucose (74-106) mg/dL Lactic Acid (0.4-2.0) Calcium (8.4-10.2) mg/dL Ferritin (6.24-137) ng/mL Total Bilirubin (0.2-1.3) mg/dL AST (14-36) U/L ALT (0-35) U/L Alkaline Phosphatase (38-126) U/L Lactate Dehydrogenase (120-246) U/L Troponin I (0.000-0.034) ng/mL Serum Total Protein (6.3-8.2) g/dL Albumin (3.5-5.0) g/dL Urine Color YELLOW (YELLOW) Urine Appearance SLIGHTLY CLOUDY (CLEAR) Urine pH 5.0 (5-6) Ur Specific [place] 1.023 (1.005-1.025) Urine Protein NEGATIVE (Negative) Urine Ketones TRACE (NEGATIVE) Urine Blood NEGATIVE (0-5) Fernando/ul Urine Nitrite NEGATIVE (NEGATIVE) Urine Bilirubin NEGATIVE (NEGATIVE) Urine Urobilinogen NEGATIVE (0-1) mg/dL Ur Leukocyte Esterase NEGATIVE (NEGATIVE) Urine WBC (Auto) 0-2 (0-5) /HPF Urine RBC (Auto) 3-5 (0-2) /HPF U Epithel Cells (Auto) RARE (FEW) /HPF Urine Bacteria (Auto) NONE (NEGATIVE) /HPF Urine Mucus (Auto) MANY (NEGATIVE) /HPF Urine Culture Reflexed NO (NO) Urine Glucose NEGATIVE (NEGATIVE) mg/dL Monoscreen NEGATIVE (Negative) Influenza Type A Ag (NEGATIVE) Influenza Type B Ag (NEGATIVE) Group A Strep Antibody (NEGATIVE) 07/28/21 07/28/21 07/28/21 Range/Units 19:00 19:00 19:00 WBC (4.0-10.5) K/mm3 RBC (4.1-5.4) M/mm3 Hgb (12.0-16.0) gm/dl Hct (35-47) % MCV (78-100) fl MCH (26-32) pg MCHC (32-36) g/dl RDW (11.5-14.0) % Plt Count (150-450) K/mm3 MPV (7.5-11.0) fl Gran % (36.0-66.0) % Eos # (Auto) (0-0.5) Absolute Lymphs (auto) (1.0-4.6) Absolute Monos (auto) (0.0-1.3) Lymphocytes % (24.0-44.0) % Monocytes % (0.0-12.0) % Eosinophils % (0.00-5.0) % Basophils % (0.0-0.4) % Absolute Granulocytes (1.4-6.9) Basophils # (0-0.4) D-Dimer 249 (215-500) ng/mL Sodium (137-145) mmol/L Potassium (3.5-5.1) mmol/L Chloride (98-107) mmol/L Carbon Dioxide (22-30) mmol/L Anion Gap (5-15) MEQ/L BUN (7-17) mg/dL Creatinine (0.52-1.04) mg/dL Estimated GFR ML/MIN Glucose (74-106) mg/dL Lactic Acid (0.4-2.0) Calcium (8.4-10.2) mg/dL Ferritin 45.6 (6.24-137) ng/mL Total Bilirubin (0.2-1.3) mg/dL AST (14-36) U/L ALT (0-35) U/L Alkaline Phosphatase (38-126) U/L Lactate Dehydrogenase (120-246) U/L Troponin I < 0.012 (0.000-0.034) ng/mL Serum Total Protein (6.3-8.2) g/dL Albumin (3.5-5.0) g/dL Urine Color (YELLOW) Urine Appearance (CLEAR) Urine pH (5-6) Ur Specific [place] (1.005-1.025) Urine Protein (Negative) Urine Ketones (NEGATIVE) Urine Blood (0-5) Fernando/ul Urine Nitrite (NEGATIVE) Urine Bilirubin (NEGATIVE) Urine Urobilinogen (0-1) mg/dL Ur Leukocyte Esterase (NEGATIVE) Urine WBC (Auto) (0-5) /HPF Urine RBC (Auto) (0-2) /HPF U Epithel Cells (Auto) (FEW) /HPF Urine Bacteria (Auto) (NEGATIVE) /HPF Urine Mucus (Auto) (NEGATIVE) /HPF Urine Culture Reflexed (NO) Urine Glucose (NEGATIVE) mg/dL Monoscreen (Negative) Influenza Type A Ag (NEGATIVE) Influenza Type B Ag (NEGATIVE) Group A Strep Antibody (NEGATIVE) 07/28/21 Range/Units 19:00 WBC (4.0-10.5) K/mm3 RBC (4.1-5.4) M/mm3 Hgb (12.0-16.0) gm/dl Hct (35-47) % MCV (78-100) fl MCH (26-32) pg MCHC (32-36) g/dl RDW (11.5-14.0) % Plt Count (150-450) K/mm3 MPV (7.5-11.0) fl Gran % (36.0-66.0) % Eos # (Auto) (0-0.5) Absolute Lymphs (auto) (1.0-4.6) Absolute Monos (auto) (0.0-1.3) Lymphocytes % (24.0-44.0) % Monocytes % (0.0-12.0) % Eosinophils % (0.00-5.0) % Basophils % (0.0-0.4) % Absolute Granulocytes (1.4-6.9) Basophils # (0-0.4) D-Dimer (215-500) ng/mL Sodium 137 (137-145) mmol/L Potassium 3.8 (3.5-5.1) mmol/L Chloride 104 (98-107) mmol/L Carbon Dioxide 23 (22-30) mmol/L Anion Gap 14.1 (5-15) MEQ/L BUN 16 (7-17) mg/dL Creatinine 0.94 (0.52-1.04) mg/dL Estimated GFR > 60.0 ML/MIN Glucose 98 (74-106) mg/dL Lactic Acid (0.4-2.0) Calcium 9.5 (8.4-10.2) mg/dL Ferritin (6.24-137) ng/mL Total Bilirubin 0.90 (0.2-1.3) mg/dL AST 33 (14-36) U/L ALT 17 (0-35) U/L Alkaline Phosphatase 91 (38-126) U/L Lactate Dehydrogenase 218 (120-246) U/L Troponin I (0.000-0.034) ng/mL Serum Total Protein 7.9 (6.3-8.2) g/dL Albumin 5.0 (3.5-5.0) g/dL Urine Color (YELLOW) Urine Appearance (CLEAR) Urine pH (5-6) Ur Specific [place] (1.005-1.025) Urine Protein (Negative) Urine Ketones (NEGATIVE) Urine Blood (0-5) Fernando/ul Urine Nitrite (NEGATIVE) Urine Bilirubin (NEGATIVE) Urine Urobilinogen (0-1) mg/dL Ur Leukocyte Esterase (NEGATIVE) Urine WBC (Auto) (0-5) /HPF Urine RBC (Auto) (0-2) /HPF U Epithel Cells (Auto) (FEW) /HPF Urine Bacteria (Auto) (NEGATIVE) /HPF Urine Mucus (Auto) (NEGATIVE) /HPF Urine Culture Reflexed (NO) Urine Glucose (NEGATIVE) mg/dL Monoscreen (Negative) Influenza Type A Ag (NEGATIVE) Influenza Type B Ag (NEGATIVE) Group A Strep Antibody (NEGATIVE) - Progress Progress: improved, re-examined Air Movement: good Blood Culture(s) Obtained: Yes Counseled pt/family regarding: lab results, diagnosis, need for follow-up, rad results - Departure Departure Disposition: Home Clinical Impression: Viral illness, Fever Condition: Stable Critical Care Time: No Referrals: RUTHIE SHARIF MD [Primary Care Provider] - Follow up/PCP as directed Additional Instructions: Drink plenty of fluids. Use ibuprofen 600 mg orally with food 3 times a day for fever control and to help control aches and pains. Quarantine yourself Prescriptions: Hydrocodone/Acetaminophen [Hydrocodone-Acetamn 7.5-325/15] 10 ml PO Q8H PRN PRN #120 ml MDD 30 ml PRN Reason: Cough Prednisone 10 mg [Deltasone 10 mg] 10 mg PO TID #12 tablet
[2021-07-28] MEDS ORDERED: HYDROCODONE-ACETAMIN 2.5-108/5 ML SOLUTION PO STA (19:08)
[2021-07-28] MEDS ORDERED: Sodium Chloride 0.9% 1000 ML 1,000 ML ONE (19:18)
[2021-07-28] MEDS ORDERED: HYDROCODONE-ACETAMIN 2.5-108/5 ML SOLUTION ONE (19:18)
[2021-07-28 19:30] LABS: Basophil (Absolute #) 0.03 (0-0.4); Eosinophil % 1.3 % (0.00-5.0); Eosinophil (Absolute #) 0.08 (0-0.5); Hematocrit 43.6 % (35-47); Lymphocyte (Absolute #) 0.45 (1.0-4.6); Lymphocytes % 7.3 % (24.0-44.0); Mean Corpuscular Hemoglobin 30.5 pg (26-32); Mean Corpuscular Hgb Concent. 32.1 g/dl (32-36); Mean Platelet Volume 10.2 fl (7.5-11.0); Monocyte (Absolute #) 0.79 (0.0-1.3); Monocytes % 12.8 % (0.0-12.0); Neutrophil % 78.1 % (36.0-66.0); Platelet Count 217 K/mm3 (150-450); Red Blood Count 4.59 M/mm3 (4.1-5.4); Red Cell Distribution Width 12.4 % (11.5-14.0); White Blood Count 6.2 K/mm3 (4.0-10.5)
[2021-07-28 19:43] LABS: Appearance SLIGHTLY CLOUDY (CLEAR); Bilirubin NEGATIVE (NEGATIVE); Blood NEGATIVE Ery/ul (0-5); Epithelial Cells RARE /HPF (FEW); Glucose NEGATIVE (NEGATIVE); Ketones TRACE (NEGATIVE); Leukocyte Esterase NEGATIVE (NEGATIVE); Mucus MANY /HPF (NEGATIVE); Nitrite NEGATIVE (NEGATIVE); Protein,Urine Dip NEGATIVE (Negative); Specific Gravity 1.023 (1.005-1.025); Urobilinogen NEGATIVE mg/dL (0-1); WBC 0-2 /HPF (0-5)
[2021-07-28 19:43] LABS: ALKALINE PHOSPHATASE 91 U/L (38-126); ANION GAP 14.1 MEQ/L (5-15); BLOOD UREA NITROGEN 16 mg/dL (7-17); CHLORIDE 104 mmol/L (98-107); Calcium 9.5 mg/dL (8.4-10.2); Carbon Dioxide 23 mmol/L (22-30); Creatinine 1 0.94 mg/dL (0.52-1.04); EST GLOMERULAR FILTRATION RATE > 60.0 ML/MIN; Glucose 98 mg/dL (74-106); LDH-LACTATE DEHYDROGENASE 218 U/L (120-246); Potassium 3.8 mmol/L (3.5-5.1); SGOT/AST 33 U/L (14-36); SGPT/ALT 17 U/L (0-35); SODIUM 137 mmol/L (137-145); Total Protein 7.9 g/dL (6.3-8.2)
[2021-07-28 20:12] VITALS: BP 96/51; PULSE 71
[2021-07-28 20:24] LABS: INFLUENZA A NEGATIVE (NEGATIVE); INFLUENZA B NEGATIVE (NEGATIVE)
[2021-07-28 20:38] VITALS: O2SAT 98
--- NOTE | 2021-07-28 21:56 | XRAY ---
Indication: Fever, cough, and congestion. Comparison: September 08, 2019. Portable chest is now clear. Heart and mediastinal structures within normal limits. Bony thorax intact. Impression: Nonacute chest.
== END 2021-07-28 20:56 | disposition home or self-care (01) ==
LOC: ED 18:51
DX: B34.9 Viral infection, unspecified (principal); R50.9 Fever, unspecified; M79.10 Myalgia, unspecified site; R51.9 Headache, unspecified; R05.9 Cough, unspecified; R11.0 Nausea; R06.02 Shortness of breath; I95.9 Hypotension, unspecified; Z79.891 Long term (current) use of opiate analgesic; Z79.52 Long term (current) use of systemic steroids
CPT/HCPCS: 36000; 36415; 71045; 80053; 81001; 82728; 83605; 83615; 84484; 85025; 85379; 86308; 87040; 87400; 87651; 93005; 94760; 96360; 99284; U0003; A9270-GY

== ENCOUNTER 2024-11-18 11:37 | Emergency (ER) | payer OTHER ==
[2013-04-26 01:40] VITALS: BP 99/61
== END 2024-11-18 11:52 | disposition left against medical advice (07) ==
LOC: ED 11:37
DX: Z53.21 Procedure and treatment not carried out due to patient leaving prior to being seen by health care provider (principal)